=== PATIENT | female | born 1965 | race Caucasian/White ===

== ENCOUNTER 2021-05-25 20:03 | Outpatient (REF) | payer MEDICAID, SELFPAY ==
[2021-05-25 20:23] LABS: Abs Immature Grans 0.05 10^3/uL (0.0-0.06); Absolute Basophil Count 0.09 10^3/uL (0.0-0.2); Absolute Eosinophil Count 0.08 10^3/uL (0.0-0.7); Absolute Lymphocyte Count 4.88 10^3/uL (1.2-3.4); Absolute Monocyte Count 0.85 10^3/uL (0.1-0.8); Absolute Neutrophil Count 4.99 10^3/uL (1.2-6.7); Basophils % 0.8; Eosinophils % 0.7; HCT 44.2 % (36.0-46.0); HGB 14.6 g/dL (11.2-15.7); Immature Grans % 0.5; Lymphocytes % 44.6; MCH 30.7 pg (27.0-33.0); MCV 92.9 fL (80-95); MPV 8.3 fL (8.0-11.0); Monocytes % 7.8; Neutrophils % 45.6; Nucleated RBC 0 %; Platelet Count 332 10^3/uL (130-400); RBC 4.76 10^6/uL (3.93-5.22); RDW 15.5 % (11.7-14.6); RDW-SD 53.1 fL; WBC 10.94 10^3/uL (4.4-10.8)
[2021-05-25 20:58] LABS: ALT 78 U/L (14-59); AST 59 U/L (15-37); Albumin 3.6 g/dL (3.4-5.0); Alkaline Phosphatase 181 U/L (46-116); Anion Gap 15.9 mmol/L (3-11); BUN 4 mg/dL (7-18); Bilirubin, Total 0.3 mg/dL (0.2-1.0); CO2 21.1 mmol/L (21.0-32.0); CREATININE 0.5 mg/dL (0.55-1.02); Calcium 8.6 mg/dL (8.5-10.1); Chloride 102 mmol/L (98-107); Glucose 84 mg/dL (74-106); NT-proBNP 37 pg/mL (<300); Potassium 4.2 mmol/L (3.5-5.1); Sodium 139 mmol/L (136-145); TSH (W/Ref FT4) 1.21 uIU/mL (0.36-3.74); Total Protein 7.1 g/dL (6.4-8.2)
[2021-05-28 09:55] LABS: HBs Antibody, Quant <3.1 mIU/mL (See Note); Hepatitis B Surface Ab Negative (See Note)
[2021-05-28 10:09] LABS: Hepatitis B Surface Ag Negative (Negative)
[2021-05-28 10:50] LABS: Hepatitis C Ab w Rflx HCV PCR Negative (Negative)
== END 2021-05-25 20:04 | disposition home or self-care (01) ==
LOC: NCHCN 20:03
PROVIDERS: PCP Registered Nurse; Visit Provider Internal Medicine
DX: C34.90 Malignant neoplasm of unspecified part of unspecified bronchus or lung (principal); R60.9 Edema, unspecified; R73.9 Hyperglycemia, unspecified
CPT/HCPCS: 80053; 86706; 86803; 87340; 83880; 84443; 85025

== ENCOUNTER 2021-12-20 17:46 | Outpatient (REF) | payer MEDICAID, SELFPAY ==
[2021-12-20 14:29] LABS: HCT 42.8 % (36.0-46.0); HGB 13.8 g/dL (11.2-15.7); MCHC 32.2 % (32.0-36.0); MCV 83.8 fL (80-95); MPV 9.7 fL (8.0-11.0); Platelet Count 373 10^3/uL (130-400); RBC 5.11 10^6/uL (3.93-5.22); RDW 14.5 % (11.7-14.6); RDW-SD 44.1 fL; WBC 8.72 10^3/uL (4.4-10.8)
[2021-12-20 14:49] LABS: ALT 30 U/L (14-59); AST 15 U/L (15-37); Albumin 3.8 g/dL (3.4-5.0); Alkaline Phosphatase 100 U/L (46-116); Anion Gap 11.4 mmol/L (3-11); BUN 16 mg/dL (7-18); Bilirubin, Total 0.4 mg/dL (0.2-1.0); CO2 25.6 mmol/L (21.0-32.0); CREATININE 0.6 mg/dL (0.55-1.02); Calcium 9.6 mg/dL (8.5-10.1); Chloride 104 mmol/L (98-107); Glucose 92 mg/dL (74-106); Potassium 3.9 mmol/L (3.5-5.1); Sodium 141 mmol/L (136-145); Total Protein 7.5 g/dL (6.4-8.2)
--- OUTSIDE RECORDS SUMMARY | 2021-12-20 17:48 | XMS_ITS | CCD ---
:1965 Author Care Team Providers Name Role Phone Greyson CAMEJO Attending Physician Unavailable P. Registered Nurse Unavailable Vital Signs Vital Sign Value Unit Date/Time Recent/Initial? BP Systolic 130 mmHg 08/25/2021 17:14 Initial VS BP Diastolic 95 mmHg 08/25/2021 17:14 Initial VS Respiratory Rate 28 bpm 08/25/2021 17:14 Initial VS Heart Rate 147 bpm 08/25/2021 17:14 Initial VS O2 % BldC Oximetry 100 % 08/25/2021 17:14 Initi al VS Weight Measured 122.8 lbs 08/25/2021 18:03 Initial VS Body Temperature 37 degrees 08/25/2021 18:05 Initial VS BMI (Body Mass Index) 23.83 kg/m^2 08/25/2021 18:[address] Recent VS Weight Measured 122 lbs 08/25/2021 18:48 Most Rec ent VS Height 60 in 08/25/2021 18:48 Most Recent VS BSA (Body Surface 1.53 m^2 08/25/2021 18:48 Most R ecent VS Area) BP Systolic 126 mmHg 08/25/2021 20:15 Most Recent VS BP Diastolic 85 mmHg 08/25/2021 20:15 Most Recent VS Respiratory Rate 26 bpm 08/25/2021 20:15 Most Re cent VS Heart Rate 144 bpm 08/25/2021 20:15 Most Recent VS O2 % BldC Oximetry 96 % 08/25/2021 20:15 Most Recent VS Allergies Allergy Code Allergy Type Reaction Status PCN (penicillin) 0 Drug allergy Active SULFA (sulfonamide) 0 Drug allergy Active Procedures Unknown or Not Available. History of Immunizations Unknown or Not Available. Problems Problem Code Start Date Resolved Date Status Wernicke's 72665511 Active encephalopathy Malnutrition 4306492 Active Sick-euthyroid syndrome 974188367 Acti ve Difficulty with life 438067803 Active management GERD 183127942 Active History of alcohol abuse 867471459 10/05/2021 Res olved Alcohol 796190656 10/05/2021 Resolved withdrawal-induced seizure PUD 89851029 10/05/2021 Resolved Elevated liver enzymes 748224824 10/05/2021 Resol dionte level Vulvar lesion 362756940 10/05/2021 Resolved Results ACETAMINOPHEN* - Collect Date/Time: 03/2021 17:20 Test Name Code Test Result Test Units Test Ref Range ACETAMINOPHEN 3298-7 <2.0 ug/mL L=10.0 H=2 0.0 ALCOHOL (ETHANOL)* - Collect Date/Time: 08/25/2021 17:20 Test Name Code Test Result Test Units Test Ref Range ALCOHOL (ETHANOL) 97061-6 <3 mg/dL AMMONIA - Collect Date/Time: 08/25/2021 17:20 Test Name Code Test Result Test Units Test Ref Range AMMONIA 90459-3 61 umol/L L=19 H=54 COMPREHENSIVE METABOLIC PANEL (CMP) - Co llect Date/Time: 08/25/2021 17:20 Test Name Code Test Result Test Units Test Ref Range GLUCOSE 2345-7 102 mg/dL L=70 H=11 6 BUN 3094-0 52 mg/dL L=6 H=25 CREATININE 2160-0 1.66 mg/dL L=0.51 H=0.95 SODIUM SERUM 2951-2 162 mmol/L L=136 H=14 5 POTASSIUM SERUM 2823-3 3.6 mmol/L L=3.4 H =5.2 CHLORIDE SERUM 2075-0 118 mmol/L L=96 H= 110 CARBON DIOXIDE (CO2) 2028-9 18 mmol/L L=22 H=34 ANION GAP 95670-2 25.6 mmol/L CALCIUM SERUM 69175-4 9.1 mg/dL L=8.2 H=10.2 BILIRUBIN TOTAL 1975-2 6.0 mg/dL L=0.0 H =1.3 ALK. PHOS. 6768-6 330 U/L L=46 H=11 6 SGOT (AST) 1920-8 972 U/L L=15 H=37 SGPT (ALT) 1742-6 794 U/L L=12 H=78 TOTAL PROTEIN 2885-2 6.6 gm/dL L=6.0 H=8 .0 ALBUMIN 1751-7 2.7 gm/dL L=3.4 H=5. 0 AGE 56 years eGFR (non-Afr.Amer.) 26800-0 32 mL/min eGFR (Afr-[place]izen [place]) 35918-9 39 mL/min CPK SERUM TOTAL* - Collect Date/Time: 17:20 Test Name Code Test Result Test Units Test Ref Range CPK 2157-6 80 U/L L=0 H=15 0 Specimen seq. ADM. N/A LACTIC ACID - Collect Date/Time: 021 17:20 Test Name Code Test Result Test Units Test Ref Range LACTIC ACID 93483-2 10.2 mmol/L L=0.7 H=2. 1 LIPASE* - Collect Date/Time: 08/25/2021 17:20 Test Name Code Test Result Test Units Test Ref Range LIPASE 197 U/L L=73 H=39 3 MAGNESIUM SERUM* - Collect Date/Time: 17:20 Test Name Code Test Result Test Units Test Ref Range MAGNESIUM 78973-3 2.6 mg/dL L=1.8 H=2. 4 SALICYLATE SERUM* - Collect Date/Time: 1 10/25/2020 17:20 Test Name Code Test Result Test Units Test Ref Range SALICYLATE 4024-6 <2.8 mg/dL L=15.0 H=30 .0 TROPONIN-I ADM.* - Collect Date/Time: 17:20 Test Name Code Test Result Test Units Test Ref Range TROPONIN-I 02318-4 0.118 ng/mL L=0.000 H=0. 060 TSH THYROID STIMULATING HORMONE* - Colle ct Date/Time: 08/25/2021 17:20 Test Name Code Test Result Test Units Test Ref Range TSH 3014-8 11.264 uIU/mL L=0.360 H=3. 740 CBC W/ DIFFERENTIAL* - Collect Date/Time : 08/25/2021 17:20 Test Name Code Test Result Test Units Test Ref Range WBC 6690-2 11.67 th/cmm L=5.00 H=10.00 NEUT % 62.9 % L=40.0 H=80.0 LYMPH % 27.2 % L=10.0 H=50.0 MONO % 22798-2 7.6 % L=2.0 H=12.0 EOS % 0.1 % L=0.0 H=8. 0 BASO % 0.7 % L=0.0 H=3. 0 IG % 2514-8 1.5 % L=0.0 H=1. 1 NRBC % 43070-3 2.0 % L=0.0 H=0. 0 NEUT abs count 751-8 7.4 th/cmm L=1.6 H= 8.4 LYMPH abs count 731-0 3.2 th/cmm L=1.5 H =4.0 MONO abs count 742-7 0.9 th/cmm L=0.2 H= 1.0 EOS abs count 711-2 0.0 th/cmm L=0.0 H=0 .5 BASO abs count 704-7 0.1 th/cmm L=0.0 H= 0.2 IG abs count 27349-5 0.2 th/cmm L=0.0 H=0. 1 NRBC abs count 11217-5 0.2 mil/cmm L=0.0 H= 0.0 RBC 789-8 4.47 mil/cmm L=3.90 H=5.40 HEMOGLOBIN 718-7 14.1 gm/dL L=12.0 H=16.0 HEMATOCRIT 4544-3 45 % L=37 H=47 MCV 787-2 100 fL L=82 H=92 MCH 785-6 31.5 pg L=27.0 H=31.0 MCHC 786-4 31.5 % L=32.0 H=36.0 RDW-SD 788-0 69.0 fL L=39.0 H=49.0 PLATELET COUNT 777-3 269 th/cmm L=150 H= 450 Anisocytosis 2+ N/A Microcytes 1+ N/A Macrocytes 1+ N/A Target cells 1+ N/A Spherocytes 1+ N/A PTT PARTIAL THROMBOPLASTIN TIME* - Colle ct Date/Time: 08/25/2021 17:20 Test Name Code Test Result Test Units Test Ref Range PTT 88332-7 21 seconds L=24 H=32 SARKIS COVID GENEXPERT* - Collect Date/T kory: 08/25/2021 17:20 Test Name Code Test Result Test Units Test Ref Range COVID 09435-6 NEGATIVE N/A Normal: Negativ e Tier- SYMPTOMS N/A CULT URINE CULTURE* - Collect Date/Time: 08/25/2021 18:01 Test Name Code Test Result Test Units Test Ref Range COLLECTION MODE: SANCHEZ N/A DRUG SCN 13 PANEL (MEDTOX)* - Collect Da te/Time: 08/25/2021 18:07 Test Name Code Test Result Test Units Test Ref Range CANNABINOIDS 46904-2 NEGATIVE N/A Cutoff = 50 ng/mL PHENCYCLIDINE 13470-1 NEGATIVE N/A Cutoff = 25 ng/mL COCAINE 62771-3 NEGATIVE N/A Cutoff = 150 ng/mL METHAMPHETAMINES 63215-3 NEGATIVE N/A Cutoff = 50 0 ng/mL OPIATES 29345-9 NEGATIVE N/A Cutoff = 100 ng/mL AMPHETAMINES 28384-0 NEGATIVE N/A Cutoff = 500 ng/mL BENZODIAZEPINES 94697-0 NEGATIVE N/A Cutoff = 150 ng/mL TRICYCLIC ANTIDEP 3533-7 NEGATIVE N/A Cutoff = 3 00 ng/mL METHADONE 17612-4 NEGATIVE N/A Cutoff = 200 ng/mL BARBITURATES 94254-4 NEGATIVE N/A Cutoff = 200 ng/mL OXYCODONE 67280-6 NEGATIVE N/A Cutoff = 100 ng/mL PROPOXYPHENE 72010-2 NEGATIVE N/A Cutoff = 300 ng/mL BUPRENORPHINE 3414-0 NEGATIVE N/A Cutoff = 10 mg/mL URINALYSIS WITH REFLEX CULT IF POSITIVE* - Collect Date/Time: 08/25/2021 18:01 Test Name Code Test Result Test Units Test Ref Range COLLECTION MODE: SANCHEZ N/A Color 5778-6 JONAH N/A yellow Appearance 5767-9 HAZY N/A clear Glucose urine 41807-9 DNR N/A negative mg/ dl Bilirubin 5770-3 DNR N/A negative Ketones 2514-8 DNR N/A negative mg/d l Spec gravity 5811-5 DNR N/A 1.003 - 1.030 pH urine 2756-5 DNR N/A 5.0 - 7.0 Protein 98754-2 DNR N/A negative mg/d l Urobilinogen 44048-6 DNR N/A <or= 1 EU/d l Nitrite. 5802-4 DNR N/A negative Blood 5794-3 DNR N/A negative Leukocytes. DNR N/A negative MICROSCOPIC INDICATED N/A WBCs. 31470-4 >100 N/A 0-5 / hpf RBCs 06916-1 0-5 N/A 0-5 / hpf Epith cells 09785-2 0-5 N/A 0-5 / hpf Cell types transition N/A Crystals none N/A none Bacteria large N/A none Mucus 8247-9 present N/A none Casts 31084-3 none N/A none /lp f TYPE AND SCREEN* - Collect Date/Time: 17:20 Test Name Code Test Result Test Units Test Ref Range Blood Group 883-9 O N/A Rh (D) 61476-6 POSITIVE N/A Antibody Screen 1005-8 NEGATIVE N/A Active Medications Medications Administered During Visit Medication Dose Units Frequency Route Date/Time of Last Dose SODIUM CHLORIDE 100 ML X1 1 18:51 0.9% 1000ML CefTRIAXone IVPB: 1 GM X1 021 18:53 1GM/50ML SODIUM CHLORIDE 250 ML X1 1 19:18 0.45% 1000ML FOLIC/MVI/THIAMINE 250 ML X1 2020 20:25 /NS 1MG/10ML/500MG/L Encounters Encounter Diagnosis Diagnosis Code Start Date Hyperosmolality and or hypernatremia 504142435 03/2021 Social History Smoking Status Code Start Date End Date Current every day smoker 037987981 Patient Decision Aids Unknown or Not Available. Discharge Instructions You were admitted to [facility] on 08/25/2021 16:54 with a principal diagnosis of Hyperosmolality and hyperna tremia You had the following tests done: DRUG SCN 13 PANEL (MEDTOX)* CULT URINE CULTURE* URINALYSI S WITH REFLEX CULT IF POSITIVE* ACETAMINOPHEN* ALCOHOL (ETHANOL )* AMMONIA CBC W/ DIFFERENTIAL* COMPREHENSIVE MET ABOLIC PANEL (CMP) [facility]* CPK SERUM TOTAL* LACTIC ACID LIPASE* MAGNESIUM SERUM* PTT PARTIAL TH ROMBOPLASTIN TIME* SALICYLATE SERUM* TROPONIN-I ADM.* TSH T HYROID STIMULATING HORMONE* TYPE AND SCREEN* You were discharged from [facility] on 08/25/2021 20:57 Should you have any questions prior to d ischarge, please contact a member of your healthcare team. If you have left the ho spital and have any questions, please contact your primary care physician. Chief Complaint and Reason For Visit Chief Complaint Date of Onset UNRESPONSIVE Function Status Unknown or Not Available. Plan of Care Unknown or Not Available. Referral/Transition of Care Unknown or Not Available.
--- OUTSIDE RECORDS SUMMARY | 2021-12-20 17:48 | XMS_ITS | CCD ---
:1965 Author Care Team Providers Name Role Phone Cheng MONCADA Attending Physician Unavailable Vital Signs Unknown or Not Available. Allergies Allergy Code Allergy Type Reaction Status PCN (penicillin) 0 Drug allergy Active SULFA (sulfonamide) 0 Drug allergy Active Procedures Unknown or Not Available. History of Immunizations Unknown or Not Available. Problems Problem Code Start Date Resolved Date Status Wernicke's 69812185 Active encephalopathy Malnutrition 0118576 Active Sick-euthyroid syndrome 900955589 Acti ve Difficulty with life 682728674 Active management GERD 462729744 Active History of alcohol abuse 418267087 10/05/2021 Res olved Alcohol 409490003 10/05/2021 Resolved withdrawal-induced seizure PUD 88596258 10/05/2021 Resolved Elevated liver enzymes 257363811 10/05/2021 Resol dionte level Vulvar lesion 333573707 10/05/2021 Resolved Results Unknown or Not Available. Active Medications Medication Code Dose Units Frequency Route Modification Start Date/Time Multivitamin 74347141364 1 EACH DAILY ORAL 022 Oral Tablet 09:44 Prescription Detail TAKE 1 EACH ORAL DAILY Pantoprazole 538667 40 MG DAILY ORAL 12/06/2021 Sodium 40 MG Oral 09:43 Tablet, Delayed Release Prescription Detail TAKE 40 MG ORAL DAILY Thiamine HCl 000660 100 MILLIGRAMS DAILY ORAL 12/06/19 22 100MG Oral 09:41 Tablet Prescription Detail TAKE 100 MILLIGRAMS ORAL ROMI LY Folic Acid 112978 1 MILLIGRAMS DAILY ORAL 12/06/2021 1MG Oral 09:40 Tablet Prescription Detail TAKE 1 MILLIGRAMS ORAL DAILY Medications Administered During Visit Unknown or Not Available. Encounters Unknown or Not Available. Social History Smoking Status Code Start Date End Date Current every day smoker 157562284 Patient Decision Aids Unknown or Not Available. Discharge Instructions You were admitted to [facility] on 10/05/2021 16:[address] [facility] on 10/05/2021 16:44 Should you have any questions prior to d ischarge, please contact a member of your healthcare team. If you have left the ho spital and have any questions, please contact your primary care physician. Chief Complaint and Reason For Visit Chief Complaint Date of Onset ALTERED MENTAL STATUS Function Status Unknown or Not Available. Plan of Care Unknown or Not Available. Referral/Transition of Care Unknown or Not Available.
--- OUTSIDE RECORDS SUMMARY | 2021-12-20 17:48 | XMS_ITS | CCD ---
[...] Code Start Date Resolved Date Status Wernicke's 49288772 Active encephalopathy Malnutrition 8544258 Active Sick-euthyroid syndrome 863884225 Acti ve Difficulty with life 760056246 Active management GERD 436022653 Active History of alcohol abuse 305662335 10/05/2021 Res olved Alcohol 800127801 10/05/2021 Resolved withdrawal-induced seizure PUD 58251738 10/05/2021 Resolved Elevated liver enzymes 245866690 10/05/2021 Resol dionte level Vulvar lesion 633154626 10/05/2021 Resolved Results Unknown or Not Available. Active Medications Medication Code Dose Units Frequency Route Modification Start Date/Time Multivitamin 87506358454 1 EACH DAILY ORAL 022 Oral Tablet 09:44 Prescription Detail TAKE 1 EACH ORAL DAILY Pantoprazole 175525 40 MG DAILY ORAL 12/06/2021 Sodium 40 MG Oral 09:43 Tablet, Delayed Release Prescription Detail TAKE 40 MG ORAL DAILY Thiamine HCl 232038 100 MILLIGRAMS DAILY ORAL 12/06/19 22 100MG Oral 09:41 Tablet Prescription Detail TAKE 100 MILLIGRAMS ORAL ROMI LY Folic Acid 705300 1 MILLIGRAMS DAILY ORAL 12/06/2021 1MG Oral 09:40 Tablet Prescription Detail TAKE 1 MILLIGRAMS ORAL DAILY Medications Administered During Visit Unknown or Not Available. Encounters Encounter Diagnosis Diagnosis Code Start Date Wernicke's encephalopathy E512 10/05/2021 Social History Smoking Status Code Start Date End Date Current every day smoker 686562512 Patient Decision Aids Unknown or Not Available. Discharge Instructions You were admitted to [facility] on 10/05/2021 06:01 with a principal diagnosis of Wernicke's encephalopathy You were discharged from [facility] on 12/06/2021 06:01 Should you have any questions prior to d ischarge, please contact a member of your healthcare team. If you have left the ho spital and have any questions, please contact your primary care physician. Chief Complaint and Reason For Visit Unknown or Not Available. Function Status Unknown or Not Available. Plan of Care Unknown or Not Available. Referral/Transition of Care Unknown or Not Available.
--- OUTSIDE RECORDS SUMMARY | 2021-12-20 17:48 | XMS_ITS | CCD ---
:1965 Author Care Team Providers Name Role Phone Cheng MONCADA Attending Physician Unavailable Vital Signs Vital Sign Value Unit Date/Time Recent/Initial? BP Systolic 126 mmHg 10/05/2021 20:25 Initial VS BP Diastolic 69 mmHg 10/05/2021 20:25 Initial VS Respiratory Rate 18 bpm 10/05/2021 20:25 Initial VS Heart Rate 101 bpm 10/05/2021 20:25 Initial VS O2 % BldC Oximetry 97 % 10/05/2021 20:25 Initi al VS Body Temperature 36.7 degrees 10/05/2021 20:25 Initial VS BMI (Body Mass 24.46 kg/m^2 10/06/2021 09:20 Initial V S Index) Weight Measured 129.43 lbs 10/06/2021 09:20 Initial VS Height 61 in 10/06/2021 09:20 Initial VS BSA (Body Surface 1.59 m^2 10/06/2021 09:20 Initia l VS Area) Weight Measured 127.3 lbs 12/06/2021 05:20 Most Rec ent VS BP Systolic 89 mmHg 12/06/2021 05:20 Most Recent VS BP Diastolic 73 mmHg 12/06/2021 05:20 Most Recent VS Respiratory Rate 16 bpm 12/06/2021 05:20 Most Re cent VS Heart Rate 98 bpm 12/06/2021 05:20 Most Recent VS O2 % BldC Oximetry 100 % 12/06/2021 05:20 Most Recent VS Body Temperature 36.7 degrees 12/06/2021 05:20 Most Re cent VS Allergies Allergy Code Allergy Type Reaction Status PCN (penicillin) 0 Drug allergy Active SULFA (sulfonamide) 0 Drug allergy Active Procedures Unknown or Not Available. History of Immunizations Unknown or Not Available. Problems Problem Code Start Date Resolved Date Status Wernicke's 61389580 Active encephalopathy Malnutrition 1966371 Active Sick-euthyroid syndrome 307276671 Acti ve Difficulty with life 292440913 Active management GERD 738151573 Active History of alcohol abuse 233111149 10/05/2021 Res olved Alcohol 005096338 10/05/2021 Resolved withdrawal-induced seizure PUD 82077923 10/05/2021 Resolved Elevated liver enzymes 319863873 10/05/2021 Resol dionte level Vulvar lesion 997508579 10/05/2021 Resolved Results AMMONIA - Collect Date/Time: 11/05/2021 15:09 Test Name Code Test Result Test Units Test Ref Range AMMONIA 67240-5 <10 umol/L L=19 H=54 AMMONIA - Collect Date/Time: 10/12/2021 06:20 Test Name Code Test Result Test Units Test Ref Range AMMONIA 39026-7 <10 umol/L L=19 H=54 BASIC METABOLIC PANEL (BMP) - Collect Da te/Time: 11/27/2021 06:40 Test Name Code Test Result Test Units Test Ref Range GLUCOSE 2345-7 115 mg/dL L=70 H=11 6 BUN 3094-0 13 mg/dL L=6 H=25 CREATININE 2160-0 0.65 mg/dL L=0.51 H=0.95 SODIUM SERUM 2951-2 139 mmol/L L=136 H=14 5 POTASSIUM SERUM 2823-3 4.1 mmol/L L=3.4 H =5.2 CHLORIDE SERUM 2075-0 105 mmol/L L=96 H= 110 CARBON DIOXIDE (CO2) 2028-9 28 mmol/L L=22 H=34 ANION GAP 07172-5 6.2 mmol/L CALCIUM SERUM 30511-4 9.0 mg/dL L=8.2 H=10.2 AGE 56 years eGFR (non-Afr.Amer.) 29978-9 94 mL/min eGFR (Afr-[place]) 28258-5 114 mL/min BASIC METABOLIC PANEL (BMP) - Collect Da te/Time: 11/05/2021 15:09 Test Name Code Test Result Test Units Test Ref Range GLUCOSE 2345-7 107 mg/dL L=70 H=11 6 BUN 3094-0 11 mg/dL L=6 H=25 CREATININE 2160-0 0.51 mg/dL L=0.51 H=0.95 SODIUM SERUM 2951-2 140 mmol/L L=136 H=14 5 POTASSIUM SERUM 2823-3 3.5 mmol/L L=3.4 H =5.2 CHLORIDE SERUM 2075-0 104 mmol/L L=96 H= 110 CARBON DIOXIDE (CO2) 2028-9 29 mmol/L L=22 H=34 ANION GAP 01722-4 7.3 mmol/L CALCIUM SERUM 56478-0 8.7 mg/dL L=8.2 H=10.2 AGE 56 years eGFR (non-Afr.Amer.) 50303-0 >120 mL/min eGFR (Afr-[place]) 67625-9 >120 mL/min COMPREHENSIVE METABOLIC PANEL (CMP) - Co llect Date/Time: 10/12/2021 06:20 Test Name Code Test Result Test Units Test Ref Range GLUCOSE 2345-7 100 mg/dL L=70 H=11 6 BUN 3094-0 13 mg/dL L=6 H=25 CREATININE 2160-0 0.61 mg/dL L=0.51 H=0.95 SODIUM SERUM 2951-2 139 mmol/L L=136 H=14 5 POTASSIUM SERUM 2823-3 4.0 mmol/L L=3.4 H =5.2 CHLORIDE SERUM 2075-0 105 mmol/L L=96 H= 110 CARBON DIOXIDE (CO2) 2028-9 28 mmol/L L=22 H=34 ANION GAP 63229-5 5.6 mmol/L CALCIUM SERUM 80994-2 9.0 mg/dL L=8.2 H=10.2 BILIRUBIN TOTAL 1975-2 0.2 mg/dL L=0.0 H =1.3 ALK. PHOS. 6768-6 89 U/L L=46 H=11 6 SGOT (AST) 1920-8 31 U/L L=15 H=37 SGPT (ALT) 1742-6 67 U/L L=12 H=78 TOTAL PROTEIN 2885-2 6.5 gm/dL L=6.0 H=8 .0 ALBUMIN 1751-7 2.9 gm/dL L=3.4 H=5. 0 AGE 56 years eGFR (non-Afr.Amer.) 27060-2 101 mL/min eGFR (Afr-[place]) 54821-4 >120 mL/min CBC W/ DIFFERENTIAL* - Collect Date/Time : 11/27/2021 06:40 Test Name Code Test Result Test Units Test Ref Range WBC 6690-2 7.04 th/cmm L=5.00 H=10.00 NEUT % 45.5 % L=40.0 H=80.0 LYMPH % 44.0 % L=10.0 H=50.0 MONO % 38073-3 8.4 % L=2.0 H=12.0 EOS % 1.7 % L=0.0 H=8. 0 BASO % 0.3 % L=0.0 H=3. 0 IG % 2514-8 0.1 % L=0.0 H=1. 1 NRBC % 06816-2 0.0 % L=0.0 H=0. 0 NEUT abs count 751-8 3.2 th/cmm L=1.6 H= 8.4 LYMPH abs count 731-0 3.1 th/cmm L=1.5 H =4.0 MONO abs count 742-7 0.6 th/cmm L=0.2 H= 1.0 EOS abs count 711-2 0.1 th/cmm L=0.0 H=0 .5 BASO abs count 704-7 0.0 th/cmm L=0.0 H= 0.2 IG abs count 68549-4 0.0 th/cmm L=0.0 H=0. 1 NRBC abs count 78671-4 0.0 mil/cmm L=0.0 H= 0.0 RBC 789-8 4.70 mil/cmm L=3.90 H=5.40 HEMOGLOBIN 718-7 13.2 gm/dL L=12.0 H=16.0 HEMATOCRIT 4544-3 41 % L=37 H=47 MCV 787-2 87 fL L=82 H=92 MCH 785-6 28.1 pg L=27.0 H=31.0 MCHC 786-4 32.4 % L=32.0 H=36.0 RDW-SD 788-0 45.1 fL L=39.0 H=49.0 PLATELET COUNT 777-3 336 th/cmm L=150 H= 450 CBC W/ DIFFERENTIAL* - Collect Date/Time : 11/05/2021 15:09 Test Name Code Test Result Test Units Test Ref Range WBC 6690-2 5.34 th/cmm L=5.00 H=10.00 NEUT % 44.9 % L=40.0 H=80.0 LYMPH % 47.6 % L=10.0 H=50.0 MONO % 00058-9 6.0 % L=2.0 H=12.0 EOS % 0.9 % L=0.0 H=8. 0 BASO % 0.2 % L=0.0 H=3. 0 IG % 2514-8 0.4 % L=0.0 H=1. 1 NRBC % 06898-6 0.0 % L=0.0 H=0. 0 NEUT abs count 751-8 2.4 th/cmm L=1.6 H= 8.4 LYMPH abs count 731-0 2.5 th/cmm L=1.5 H =4.0 MONO abs count 742-7 0.3 th/cmm L=0.2 H= 1.0 EOS abs count 711-2 0.1 th/cmm L=0.0 H=0 .5 BASO abs count 704-7 0.0 th/cmm L=0.0 H= 0.2 IG abs count 78153-5 0.0 th/cmm L=0.0 H=0. 1 NRBC abs count 54481-8 0.0 mil/cmm L=0.0 H= 0.0 RBC 789-8 4.36 mil/cmm L=3.90 H=5.40 HEMOGLOBIN 718-7 12.9 gm/dL L=12.0 H=16.0 HEMATOCRIT 4544-3 39 % L=37 H=47 MCV 787-2 90 fL L=82 H=92 MCH 785-6 29.6 pg L=27.0 H=31.0 MCHC 786-4 32.9 % L=32.0 H=36.0 RDW-SD 788-0 43.5 fL L=39.0 H=49.0 PLATELET COUNT 777-3 316 th/cmm L=150 H= 450 Atyp lymphs 1+ N/A Vaccuol neutr 1+ N/A CBC W/ DIFFERENTIAL* - Collect Date/Time : 10/12/2021 06:20 Test Name Code Test Result Test Units Test Ref Range WBC 6690-2 6.73 th/cmm L=5.00 H=10.00 NEUT % 40.5 % L=40.0 H=80.0 LYMPH % 48.4 % L=10.0 H=50.0 MONO % 51327-5 9.1 % L=2.0 H=12.0 EOS % 1.3 % L=0.0 H=8. 0 BASO % 0.4 % L=0.0 H=3. 0 IG % 2514-8 0.3 % L=0.0 H=1. 1 NRBC % 20005-6 0.0 % L=0.0 H=0. 0 NEUT abs count 751-8 2.7 th/cmm L=1.6 H= 8.4 LYMPH abs count 731-0 3.3 th/cmm L=1.5 H =4.0 MONO abs count 742-7 0.6 th/cmm L=0.2 H= 1.0 EOS abs count 711-2 0.1 th/cmm L=0.0 H=0 .5 BASO abs count 704-7 0.0 th/cmm L=0.0 H= 0.2 IG abs count 45293-3 0.0 th/cmm L=0.0 H=0. 1 NRBC abs count 54743-7 0.0 mil/cmm L=0.0 H= 0.0 RBC 789-8 3.80 mil/cmm L=3.90 H=5.40 HEMOGLOBIN 718-7 12.0 gm/dL L=12.0 H=16.0 HEMATOCRIT 4544-3 37 % L=37 H=47 MCV 787-2 97 fL L=82 H=92 MCH 785-6 31.6 pg L=27.0 H=31.0 MCHC 786-4 32.6 % L=32.0 H=36.0 RDW-SD 788-0 47.8 fL L=39.0 H=49.0 PLATELET COUNT 777-3 352 th/cmm L=150 H= 450 Active Medications Medication Code Dose Units Frequency Route Modification Start Date/Time Multivitamin 90226823747 1 EACH DAILY ORAL 022 Oral Tablet 09:44 Prescription Detail TAKE 1 EACH ORAL DAILY Pantoprazole 950173 40 MG DAILY ORAL 12/06/2021 Sodium 40 MG Oral 09:43 Tablet, Delayed Release Prescription Detail TAKE 40 MG ORAL DAILY Thiamine HCl 728157 100 MILLIGRAMS DAILY ORAL 12/06/19 22 100MG Oral 09:41 Tablet Prescription Detail TAKE 100 MILLIGRAMS ORAL ROMI LY Folic Acid 881273 1 MILLIGRAMS DAILY ORAL 12/06/2021 1MG Oral 09:40 Tablet Prescription Detail TAKE 1 MILLIGRAMS ORAL DAILY Medications Administered During Visit Medication Dose Units Frequency Route Date/Time of Last Dose ENOXAPARIN INJ 40 MG Q24H SUBQ 10/15/2021 SYRINGE: 40MG/0.4ML 20:18 FOLIC ACID TABLET: 1 MG DAILY PO 2021 1MG 07:38 MULTIVITAMIN 1 TAB DAILY WITH FOOD PO 022 W/MINERALS TABLET 07:38 PANTOPRAZOLE TABLET: 40 MG Q7AM PO 11/20 40MG 06:31 THIAMINE TABLET: 100 MG DAILY PO 12/06/19 22 100MG 07:38 ACETAMINOPHEN 650 MG PRN Q6H PO 12/04/2021 TABLET: 325MG 08:26 NF-Xifaxan Oral 550 MG BID PO Tablet 550MG 20:25 IBUPROFEN TABLET: 600 MG X1 PO 022 600MG 08:29 IBUPROFEN TABLET: 600 MG TID PO 022 600MG 07:38 Encounters Encounter Diagnosis Diagnosis Code Start Date Wernicke's encephalopathy E512 10/05/2021 Social History Smoking Status Code Start Date End Date Current every day smoker [id number] Patient Decision Aids Unknown or Not Available. Discharge Instructions You were admitted to [facility] on 10/05/2021 16:44 with a principal diagnosis of Wernicke's encephalopathy You had the following tests done: BASIC METABOLIC PANEL (BMP) CBC W/ DIFFERENTIAL* AMMONIA BASIC METABOLIC PANEL (BMP) CBC W/ DIFFERENTIAL* AMMONIA CBC W/ DIFFERENTIAL* COMPREHENSIVE METABOLIC PANEL (CMP) You were discharged from [facility] on 12/06/2021 10:25 Should you have any questions prior to d ischarge, please contact a member of your healthcare team. If you have left the ho spital and have any questions, please contact your primary care physician. Chief Complaint and Reason For Visit Chief Complaint Date of Onset DECONDITIONING WERNICKES ENCEPHALOPATHY 10/06/2021 Function Status Unknown or Not Available. Plan of Care Unknown or Not Available. Referral/Transition of Care Unknown or Not Available.
[2021-12-21 08:26] LABS: TSH 1.93 uIU/mL (0.36-3.74)
== END 2021-12-20 17:47 | disposition home or self-care (01) ==
LOC: NCHCN 17:46
PROVIDERS: PCP Registered Nurse; Visit Provider Registered Nurse
DX: E51.2 Wernicke's encephalopathy (principal)
CPT/HCPCS: 80053; 85027; 84443

== ENCOUNTER 2021-12-21 11:28 | Outpatient (REF) | payer MEDICAID, SELFPAY | END 2021-12-21 11:29 | disposition home or self-care (01) | LOC: NCHCN 11:28 | PROVIDERS: PCP Registered Nurse; Visit Provider Registered Nurse ==

== ENCOUNTER 2022-10-03 11:57 | Outpatient (REF) | payer MEDICAID, SELFPAY ==
[2022-10-03 14:27] LABS: HCT 37.6 % (36.0-46.0); HGB 12.1 g/dL (11.2-15.7); MCH 27.9 pg (27.0-33.0); MCHC 32.2 % (32.0-36.0); MCV 87 fL (80-95); Platelet Count 367 10^3/uL (130-400); RBC 4.33 10^6/uL (3.93-5.22); RDW 13.2 % (11.7-14.6); RDW-SD 41.4 fL; WBC 10.83 10^3/uL (4.4-10.8)
[2022-10-03 14:42] LABS: INR 0.9 (0.9-1.1); Prothrombin Time 9.1 sec (9.3-11.0)
[2022-10-03 14:44] LABS: NT-proBNP 69 pg/mL (<300); TSH 3.46 uIU/mL (0.36-3.74)
[2022-10-03 22:10] LABS: COMMENT (LAB VIEW ONLY) 159.47 mg/dL; Microalb ug/mg Crea 4.5 ug/mg Cr
== END 2022-10-03 11:58 | disposition home or self-care (01) ==
LOC: NCHCN 11:57
PROVIDERS: PCP Registered Nurse; Visit Provider Registered Nurse
DX: E51.2 Wernicke's encephalopathy (principal); M62.3 Immobility syndrome (paraplegic); N17.9 Acute kidney failure, unspecified
CPT/HCPCS: 85027; 82043; 82570; 83880; 84443; 85610

== ENCOUNTER 2022-10-10 14:58 | Outpatient (REF) | payer MEDICAID, SELFPAY ==
[2022-10-10 16:10] LABS: Albumin 3.1 g/dL (3.4-5.0); Alkaline Phosphatase 130 U/L (46-116); BUN 18 mg/dL (7-18); Bilirubin, Total 0.4 mg/dL (0.2-1.0); CO2 29.7 mmol/L (21.0-32.0); CREATININE 0.7 mg/dL (0.55-1.02); Calcium 8.8 mg/dL (8.5-10.1); Chloride 106 mmol/L (98-107); Estimated GFR 100.81 (mL/min/1.73m2); Glucose 100 mg/dL (74-106); Potassium 3.5 mmol/L (3.5-5.1); Sodium 143 mmol/L (136-145); Total Protein 7.2 g/dL (6.4-8.2)
[2022-10-10 16:11] LABS: ALT 32 U/L (14-59); AST 26 U/L (15-37); Anion Gap 7.3 mmol/L (3-11)
== END 2022-10-10 14:59 | disposition home or self-care (01) ==
LOC: NCHCN 14:58
PROVIDERS: PCP Registered Nurse; Visit Provider Registered Nurse
DX: R60.0 Localized edema (principal); Z87.19 Personal history of other diseases of the digestive system
CPT/HCPCS: 80053

== ENCOUNTER 2022-11-07 15:30 | Outpatient (REF) | payer MEDICAID, SELFPAY ==
[2022-11-07 21:35] LABS: Anion Gap 8.6 mmol/L (3-11); BUN 18 mg/dL (7-18); CO2 27.4 mmol/L (21.0-32.0); CREATININE 0.8 mg/dL (0.55-1.02); Calcium 9.8 mg/dL (8.5-10.1); Chloride 103 mmol/L (98-107); Estimated GFR 85.89 (mL/min/1.73m2); Glucose 98 mg/dL (74-106); Potassium 3.9 mmol/L (3.5-5.1); Sodium 139 mmol/L (136-145)
== END 2022-11-07 15:31 | disposition home or self-care (01) ==
LOC: NCHCN 15:30
PROVIDERS: PCP Registered Nurse; Visit Provider Registered Nurse
DX: R73.09 Other abnormal glucose (principal)
CPT/HCPCS: 80048

== ENCOUNTER 2023-01-27 13:30 | Outpatient (REF) | payer MEDICAID, SELFPAY ==
[2023-01-27 14:48] LABS: Anion Gap 7.9 mmol/L (3-11); BUN 15 mg/dL (7-18); CO2 27.1 mmol/L (21.0-32.0); CREATININE 0.8 mg/dL (0.55-1.02); Calcium 8.8 mg/dL (8.5-10.1); Chloride 104 mmol/L (98-107); Estimated GFR 85.89 (mL/min/1.73m2); Glucose 124 mg/dL (74-106); NT-proBNP 30 pg/mL (<300); Potassium 3.8 mmol/L (3.5-5.1); Sodium 139 mmol/L (136-145)
== END 2023-01-27 13:31 | disposition home or self-care (01) ==
LOC: NCHCN 13:30
PROVIDERS: PCP Registered Nurse; Visit Provider Nurse Practitioner Family
DX: R60.0 Localized edema (principal)
CPT/HCPCS: 80048; 83880

== ENCOUNTER 2023-07-03 16:58 | Outpatient (REF) | payer MEDICAID, SELFPAY | END 2023-07-03 16:59 | disposition home or self-care (01) | LOC: NCHCN 16:58 | PROVIDERS: PCP Registered Nurse; Visit Provider Family Medicine | DX: N39.0 Urinary tract infection, site not specified (principal) | CPT/HCPCS: 87086 ==

== ENCOUNTER 2024-02-18 14:43 | Outpatient (REF) | payer MEDICAID, SELFPAY ==
[2024-02-18 22:16] LABS: Abs Immature Grans 0.04 10^3/uL (0.0-0.06); Absolute Basophil Count 0.04 10^3/uL (0.0-0.2); Absolute Eosinophil Count 0.12 10^3/uL (0.0-0.7); Basophils % 0.5 %; Eosinophils % 1.6 %; HCT 44.5 % (36.0-46.0); HGB 14.5 g/dL (11.2-15.7); Immature Grans % 0.5 %; Lymphocytes % 45.3 %; MCH 27.6 pg (27.0-33.0); MCHC 32.6 % (32.0-36.0); MCV 85 fL (80-95); MPV 9.1 fL (8.0-11.0); Neutrophils % 40.1 %; Platelet Count 333 10^3/uL (130-400); RBC 5.26 10^6/uL (3.93-5.22); RDW 13.2 % (11.7-14.6); RDW-SD 40.5 fL
[2024-02-18 22:44] LABS: Hemoglobin A1C 6.2 % (<5.7)
[2024-02-18 22:52] LABS: ALT 79 U/L (14-59); AST 34 U/L (15-37); Albumin 3.9 g/dL (3.4-5.0); Alkaline Phosphatase 124 U/L (46-116); Anion Gap 12.2 mmol/L (3-11); BUN 15 mg/dL (7-18); Bilirubin, Total 0.3 mg/dL (0.2-1.0); CO2 24.8 mmol/L (21.0-32.0); CREATININE 0.8 mg/dL (0.55-1.02); Calcium 9.2 mg/dL (8.5-10.1); Chloride 102 mmol/L (98-107); Estimated GFR 85.35 (mL/min/1.73m2); Glucose 86 mg/dL (74-106); Potassium 4.1 mmol/L (3.5-5.1); Sodium 139 mmol/L (136-145); TSH (W/Ref FT4) 2.99 uIU/mL (0.36-3.74); Total Protein 7.8 g/dL (6.4-8.2)
[2024-02-18 22:53] LABS: Folate > 20.0 ng/mL (8.6-20.0)
== END 2024-02-18 14:44 | disposition home or self-care (01) ==
LOC: NCHCN 14:43
PROVIDERS: PCP Registered Nurse; Visit Provider Family Medicine
DX: M62.3 Immobility syndrome (paraplegic) (principal); E04.1 Nontoxic single thyroid nodule; F10.11 Alcohol abuse, in remission; R73.03 Prediabetes
CPT/HCPCS: 80053; 82306; 87077; 82746; 83036; 84443; 85025; 87086; 87186

== ENCOUNTER 2024-04-08 16:03 | Outpatient (REF) | payer MEDICAID, SELFPAY ==
--- OUTSIDE RECORDS SUMMARY | 2024-04-08 16:07 | XMS_ITS ---
Author Name Unknown Address [address] [place] [address] [phone] Phone Organization Unknown Address [address] [place] [address] [phone] Phone Care Team Providers Care Violent Crimes Detective Name Role Phone CORAL Anand Attending Unavailable ANGELITO Anand Primary Unavailable Social History Type Status Start Date End Date Code Code Syst em Smoking History Current every day smoker [id number] SNOMED CT Smoking History Former smoker 7770797 SNOMED CT Sex Female Medications Medication Start Date End Date Route Frequency Dose Code Code System Medication Instructions Home Meds Folic Acid 1MG Oral Tablet 12/06/2021 12/06/2021 ORAL DAILY 1 MILLIGRAMS 698689 RxNorm T MARTINEZ 1 MILLIGRAMS ORAL DAILY Multivitamin Oral Tablet 12/06/2021 12/06/2021 ORAL DAILY 1 unit(s) RxNorm TAKE 1 EACH ORAL DAILY Pantoprazole Sodium 40 MG Oral Tablet, Delayed Release 12/06/2021 12/06/2021 ORAL DAILY 40 MG 830025 RxNorm TAKE 40 MG ORAL DAILY Thiamine HCl 100MG Oral Tablet 12/06/2021 12/06/2021 ORAL DAILY 100 MILLIGRAMS 901098 RxNorm TAKE 100 MILLIGRAMS ORAL DAILY Folic Acid 1MG Oral Tablet 12/06/2021 Unknown ORAL DAILY 1 MILLIGRAMS 629642 RxNorm TAKE 1 MILLIGRAMS ORAL DAILY Thiamine HCl 100MG Oral Tablet 12/06/2021 06/18/2023 ORAL DAILY 100 MILLIGRAMS 055205 RxNorm TAKE 100 MILLIGRAMS ORAL DAILY Pantoprazole Sodium 40 MG Oral Tablet, Delayed Release 12/06/2021 Unknown ORAL DAILY 40 MG 254598 RxNorm TAKE 40 MG ORAL DAILY Multivitamin Oral Tablet 12/06/2021 Unknown ORAL DAILY 1 unit(s) RxNorm TAKE 1 EACH ORAL DAILY Keflex 500MG Oral Capsule 06/18/2023 Unknown ORAL TWICE A DAY 1 CAPSULE 934416 RxNorm TAKE 1 CAPSULE ORAL TWICE A DAY Assessment You had the following problems:WERNICKE'S ENCEPHALOPATHYMALNUTRITIONSICK- EUTHYROID SYNDROMEDIFFICULTY WITH LIFE MANAGEMENTGERD Hospital Discharge Instructions Should you have any questions prior to discharge, please contact a member of your healthcare team. If you have left the hospital and have any questions, please contact your primary care physician. Reason For Referral No Data Found Problems Problem Start Date Resolved Date Status Code Code System WERNICKE'S ENCEPHALOPATHY active 2100 7002 SNOMED-CT MALNUTRITION active 8912460 SNOMED- CT SICK-EUTHYROID SYNDROME active 040591 005 SNOMED-CT DIFFICULTY WITH LIFE MANAGEMENT active 569445823 SNOMED-CT GERD active 727410546 SNOMED-CT HISTORY OF ALCOHOL ABUSE 10/05/2021 resolved 3714 23175 SNOMED-CT ALCOHOL WITHDRAWAL-INDUCED SEIZURE 10/05/2021 resolved 639996483 SNOMED-CT PUD 10/05/2021 resolved 14065613 SNOMED-CT ELEVATED LIVER ENZYMES LEVEL 10/05/2021 resolved 181093436 SNOMED-CT VULVAR LESION 10/05/2021 resolved 399180405 SNOME D-CT Allergies and Adverse Reactions Allergy Substance Reaction Severity Start Date Concern Status Co de Code System PCN (penicillin) Active 2709686 SNOMED- CT SULFA (sulfonamide) Active 68530523 SNO MED-CT Plan of Treatment CT CHEST W/O CONTRAST 09/18/2023 US ABDOMEN LIMITED 1 ORGAN 10/15/2022 CT CHEST W/O CONTRAST 08/26/2022 MM SCREEN BILAT 08/26/2022 CT CHEST W/O CONTRAST 04/29/2022 Encounters Encounter Diagnosis Start Date Code Code Sys tem Wernicke's encephalopathy 10/05/2021 SN OMED-CT Personal Care Team Section Performer Name Performer Role Active Date Inactive Da te
--- OUTSIDE RECORDS SUMMARY | 2024-04-08 16:07 | XMS_ITS ---
Author Name Unknown Address [address] [place] [address] [phone] Phone Organization Unknown Address [address] [place] [address] [phone] Phone Care Team Providers Care Finishing Range Operator Name Role Phone Unavailable Xwatchlist Unavailable CORAL Anand Attending Unavailable ANGELITO Anand Primary Unavailable Social History Type Status Start Date End Date Code Code Syst em Smoking History Current every day smoker 386357047 SNOMED CT Smoking History Former smoker 0296327 SNOMED CT Sex Female Medications Medication Start Date End Date Route Frequency Dose Code Code System Medication Instructions Home Meds Folic Acid 1MG Oral Tablet 12/06/2021 12/06/2021 ORAL DAILY 1 MILLIGRAMS 759996 RxNorm T MARTINEZ 1 MILLIGRAMS ORAL DAILY Multivitamin Oral Tablet 12/06/2021 12/06/2021 ORAL DAILY 1 unit(s) RxNorm TAKE 1 EACH ORAL DAILY Pantoprazole Sodium 40 MG Oral Tablet, Delayed Release 12/06/2021 12/06/2021 ORAL DAILY 40 MG 805324 RxNorm TAKE 40 MG ORAL DAILY Thiamine HCl 100MG Oral Tablet 12/06/2021 12/06/2021 ORAL DAILY 100 MILLIGRAMS 500509 RxNorm TAKE 100 MILLIGRAMS ORAL DAILY Folic Acid 1MG Oral Tablet 12/06/2021 Unknown ORAL DAILY 1 MILLIGRAMS 859588 RxNorm TAKE 1 MILLIGRAMS ORAL DAILY Thiamine HCl 100MG Oral Tablet 12/06/2021 06/18/2023 ORAL DAILY 100 MILLIGRAMS 145293 RxNorm TAKE 100 MILLIGRAMS ORAL DAILY Pantoprazole Sodium 40 MG Oral Tablet, Delayed Release 12/06/2021 Unknown ORAL DAILY 40 MG 980584 RxNorm TAKE 40 MG ORAL DAILY Multivitamin Oral Tablet 12/06/2021 Unknown ORAL DAILY 1 unit(s) RxNorm TAKE 1 EACH ORAL DAILY Keflex 500MG Oral Capsule 06/18/2023 Unknown ORAL TWICE A DAY 1 CAPSULE 276378 RxNorm TAKE 1 CAPSULE ORAL TWICE A [...] ENCEPHALOPATHY active 2100 7002 SNOMED-CT MALNUTRITION active 7574521 SNOMED- CT SICK-EUTHYROID SYNDROME active 141594 005 SNOMED-CT DIFFICULTY WITH LIFE MANAGEMENT active 337080195 SNOMED-CT GERD active 142075359 SNOMED-CT HISTORY OF ALCOHOL ABUSE 10/05/2021 resolved 3714 01174 SNOMED-CT ALCOHOL WITHDRAWAL-INDUCED SEIZURE 10/05/2021 resolved 941519928 SNOMED-CT PUD 10/05/2021 resolved 36920165 SNOMED-CT ELEVATED LIVER ENZYMES LEVEL 10/05/2021 resolved 064359415 SNOMED-CT VULVAR LESION 10/05/2021 resolved 373119668 SNOME D-CT Allergies and Adverse Reactions Allergy Substance Reaction Severity Start Date Concern Status Co de Code System PCN (penicillin) Active 6609853 SNOMED- CT SULFA (sulfonamide) Active 87338009 SNO MED-CT Plan of Treatment CT CHEST W/O CONTRAST 09/18/2023 US ABDOMEN LIMITED 1 ORGAN 10/15/2022 CT CHEST W/O CONTRAST 08/26/2022 MM SCREEN BILAT 08/26/2022 CT CHEST W/O CONTRAST 04/29/2022 Personal Care Team Section Performer Name Performer Role Active Date Inactive Da te
--- OUTSIDE RECORDS SUMMARY | 2024-04-08 16:08 | XMS_ITS ---
Author Name Unknown Address [address] [place] [address] [phone] Phone Organization Unknown Address [address] [place] [address] [phone] Phone Care Team Providers Care Pelletizer Operator Name Role Phone DARWIN Canchola Attending Unavailable ANGELITO Anand Primary Unavailable Results CT LDCT FOR LUNG CA SCREEN - Completed: 08/26/2022 14:50 LOINC: [No content] MM SCREENING BILAT MAMMO W T RAMEZ W CAD - Completed: 08/26/2022 14:44 LOINC: [place], [place] [address] PACS EXTRACTION MACHINE OPERATOR REPORT Patient Name: TEREZA ALEJO MRN: Sex: : Age: [id number] F 1965 57 Account: Accession: Admit: StayType: [id number] 08/26/2022 O/P Ordered: Order ID: Submitted: Ordering Provider: 08/26/2022 14:19 [id number] [facility] GRNAADOS Completed: Technologist: Resulted: 08/26/2022 14:44 SLG 08/26/2022 14:50 Study Description: MM SCREENING BILAT MAMMO W CARISSA W CAD Study Reason: SCREENING Comparisons: This is a baseline examination. FINDINGS: There is motion on the left MLO view. This should be repeated. Mammography/Tomosynthesis: Masses/Architectural Distortion: None seen. Microcalcifictions: No suspicious pleomorphic-type are seen. Skin Thickening/Nipple Retraction: None. IMPRESSION: 1. There is motion on the left MLO view. This view should be repeated 2. No masses or areas of architectural distortion are seen. No suspicious microcalcifications are present. BI-RADS Category 0: Needs additional imaging evaluation(Additional mammographic views or ultrasound) BI_RADS Density Category B: Scattered areas of fibroglandular density Breast density Category C or D implies that the patient has dense breast tissue. Dense breast tissue can make it harder to find cancer on a mammogram. Dense breast tissue is also associated with an increased risk of breast cancer. This information about the result of the mammogram report was provided to the patient to raise their awareness. Use this report when you speak with the patient about their risks for breast cancer, which includes their family history. At that time, you may recommend additional screening tests (Ultrasound or MRI) as these tests may add significant information. A negative radiographic report should not delay biopsy if a dominant or clinically suspicious mass is present. Up to ten percent of cancers are not identified on mammography. A negative report may reinforce clinical impression. Adenosis and dense breasts may obscure an underlying neoplasm. False positive reports average 6 to 10%. Patient will receive a letter notifying them of these results. Report Digitally Signed by Broderick Zapata on 08/26/2022 02:50 PM EST Social History Type Status Start Date End Date Code Code Syst em Smoking History Current every day smoker 301083813 SNOMED CT Smoking History Former smoker 3132028 SNOMED CT Sex Female Medications Medication Start Date End Date Route Frequency Dose Code Code System Medication Instructions Home Meds Folic Acid 1MG Oral Tablet 12/06/2021 Unknown ORAL DAILY 1 MILLIGRAMS 773813 RxNorm TAKE 1 MILLIGRAMS ORAL DAILY Thiamine HCl 100MG Oral Tablet 12/06/2021 3 ORAL DAILY 100 MILLIGRAMS 522898 RxNorm TAKE 100 MILLIGRAMS ORAL DAILY Pantoprazole Sodium 40 MG Oral Tablet, Delayed Release 12/06/2021 Unknown ORAL DAILY 40 MG 173094 RxNorm TAKE 40 MG ORAL DAILY Multivitamin Oral Tablet 12/06/2021 Unknown ORAL DAILY 1 unit(s) RxNorm TAKE 1 EACH ORAL DAILY Keflex 500MG Oral Capsule 06/18/2023 Unknown ORAL TWICE A DAY 1 CAPSULE 354544 RxNorm TAKE 1 CAPSULE ORAL TWICE A [...] ENCEPHALOPATHY active 2100 7002 SNOMED-CT MALNUTRITION active 1434992 SNOMED- CT SICK-EUTHYROID SYNDROME active 618348 005 SNOMED-CT DIFFICULTY WITH LIFE MANAGEMENT active 823041560 SNOMED-CT GERD active 441796168 SNOMED-CT HISTORY OF ALCOHOL ABUSE 10/05/2021 resolved 3714 81983 SNOMED-CT ALCOHOL WITHDRAWAL-INDUCED SEIZURE 10/05/2021 resolved 359130221 SNOMED-CT PUD 10/05/2021 resolved 25821687 SNOMED-CT ELEVATED LIVER ENZYMES LEVEL 10/05/2021 resolved 602588963 SNOMED-CT VULVAR LESION 10/05/2021 resolved 451477029 SNOME D-CT Allergies and Adverse Reactions Allergy Substance Reaction Severity Start Date Concern Status Co de Code System PCN (penicillin) Active 9112207 SNOMED- CT SULFA (sulfonamide) Active 06586862 SNO MED-CT Plan of Treatment CT CHEST W/O CONTRAST 09/18/2023 US ABDOMEN LIMITED 1 ORGAN 10/15/2022 CT CHEST W/O CONTRAST 08/26/2022 MM SCREEN BILAT 08/26/2022 CT CHEST W/O CONTRAST 04/29/2022 Encounters Encounter Diagnosis Start Date Code Code Sys tem Encounter for screening mamm ogram for malignant neoplasm of breast 08/26/2022 SNOMED-CT Personal Care Team Section Performer Name Performer Role Active Date Inactive Da te
--- OUTSIDE RECORDS SUMMARY | 2024-04-08 16:08 | XMS_ITS ---
Author Name Unknown Address [address] [place] [address] [phone] Phone Organization Unknown Address [address] [place] [address] [phone] Phone Care Team Providers Care Deicer Inspector Electric Name Role Phone IRINA MENDOZA Registered Nurse Unavailable BASHIR Rubi Attending Unavailable DARWIN Canchola Primary Unavailable Results COMPREHENSIVE METABOLIC PANE L (CMP) - Collect Date/Time: 10/06/2022 12:25 [facility] ID: [id number] [address] [place] [address], [address]47 LOINC: 16140-6 Test Value Unit Reference Range Code Code System Flag GLUCOSE 103 mg/dL L=70 H=116 2345-7 LOINC BUN 15 mg/dL L=6 H=25 3094-0 LOINC CREATININE 0.79 mg/dL L=0.51 H=0.95 2160-0 LOINC SODIUM SERUM 140 mmol/L L=136 H=145 2951-2 LOINC POTASSIUM SERUM 3.8 mmol/L L=3.4 H=5.2 2823-3 LOINC CHLORIDE SERUM 105 mmol/L L=96 H=110 2075-0 LOINC CARBON DIOXIDE (CO2) 29 mmol/L L=22 H=34 2028-9 LOINC ANION GAP 5.8 mmol/L 52975-4 LOINC CALCIUM SERUM 8.9 mg/dL L=8.2 H=10.2 79781-6 LOINC BILIRUBIN TOTAL 0.3 mg/dL L=0.0 H=1.3 1975-2 LOINC ALK. PHOS. 143 U/L L=46 H=116 6768-6 LOINC H SGOT (AST) 25 U/L L=15 H=37 1920-8 LOINC SGPT (ALT) 53 U/L L=12 H=78 1742-6 LOINC TOTAL PROTEIN 7.5 gm/dL L=6.0 H=8.0 2885-2 LOINC ALBUMIN 3.1 gm/dL L=3.4 H=5.0 1751-7 LOINC L AGE 57 years eGFR (non-Afr.Amer.) 75 mL/min 47088-4 LOINC eGFR (Afr-Namibian) 91 mL/min 30597-4 LOINC CBC W/ DIFFERENTIAL* - Colle ct Date/Time: 10/06/2022 12:25 [facility] ID: [id number] [address] [place] [address], 56 LOINC: 55429-9 Test Value Unit Reference Range Code Code System Flag WBC 10.96 th/cmm L=5.00 H=10.00 6690-2 LOINC H NEUT % 56.7 % L=40.0 H=80.0 LYMPH % 27.7 % L=10.0 H=50.0 MONO % 9.9 % L=2.0 H=12.0 27165-0 LOINC EOS % 4.5 % L=0.0 H=8.0 BASO % 0.4 % L=0.0 H=3.0 IG % 0.8 % L=0.0 H=1.1 2514-8 LOINC NRBC % 0.0 % L=0.0 H=0.0 80348-9 LOINC NEUT abs count 6.2 th/cmm L=1.6 H=8.4 751-8 LOINC LYMPH abs count 3.0 th/cmm L=1.5 H=4.0 731-0 LOINC MONO abs count 1.1 th/cmm L=0.2 H=1.0 742-7 LOINC H EOS abs count 0.5 th/cmm L=0.0 H=0.5 711-2 LOINC BASO abs count 0.0 th/cmm L=0.0 H=0.2 704-7 LOINC IG abs count 0.1 th/cmm L=0.0 H=0.1 08853-2 LOINC NRBC abs count 0.0 mil/cmm L=0.0 H=0.0 01319-5 LOINC RBC 4.34 mil/cmm L=3.90 H=5.40 789-8 LOINC HEMOGLOBIN 12.4 gm/dL L=12.0 H=16.0 718-7 LOINC HEMATOCRIT 38 % L=37 H=47 4544-3 LOINC MCV 88 fL L=82 H=92 787-2 LOINC MCH 28.6 pg L=27.0 H=31.0 785-6 LOINC MCHC 32.4 % L=32.0 H=36.0 786-4 LOINC RDW-SD 42.4 fL L=39.0 H=49.0 788-0 LOINC PLATELET COUNT 378 th/cmm L=150 H=450 777-3 LOINC XR FINGER(S) 2V OR MORE RT - Completed: 10/06/2022 13:26 LOINC: [place], [place] [address] PACS DIRECTOR CLIENT SERVICES REPORT Patient Name: TEREZA ALEJO MRN: Sex: : Age: [id number] F 1965 57 Account: Accession: Admit: StayType: [id number] 10/06/2022 E/R Ordered: Order ID: Submitted: Ordering Provider: 10/06/2022 11:51 [id number] SOBEIDA GONZALES Completed: Technologist: Resulted: 10/06/2022 13:26 ALS 10/06/2022 15:34 Study Description: XR FINGER(S) 2V OR MORE RT Study Reason: Trauma Comparison: FINDINGS: Bones: No evidence of fracture Joints: No dislocation. Severe degenerative changes assessment interphalangeal joint. Soft tissues: No foreign body. IMPRESSION: No acute bony abnormality. Report Digitally Signed by Dee Dee Trujillo on 10/06/2022 03:34 PM EST Social History Type Status Start Date End Date Code Code Syst em Smoking History Current every day smoker 853920138 SNOMED CT Smoking History Former smoker 3469776 SNOMED CT Sex Female Vital Signs Vital Sign Value Unit [place] Value [place] Unit Date/Time Recent/Initial? Code Code System Body Mass Index 34.63 kg/m2 10/06/2022 11:44 Initial 92908 -5 LOINC Systolic Blood Pressure 141 mm[Hg] 10/06/2022 13:32 Most Recent 8480- 6 LOINC Diastolic Blood Pressure 69 mm[Hg] 10/06/2022 13:32 Most Recent 8462- 4 LOINC Systolic Blood Pressure 132 mm[Hg] 10/06/2022 11:44 Initial 8480- 6 LOINC Diastolic Blood Pressure 67 mm[Hg] 10/06/2022 11:44 Initial 8462- 4 LOINC Body Surface Area 1.89 m2 10/06/2022 11:44 Initial 3140- 1 LOINC Height 154.940 0 cm 61.00 in 10/06/2022 11:44 Initial 8302- 2 LOINC O2 Saturation 97 % 2021 13:32 Most Recent 79632 -5 LOINC O2 Saturation 100 % 2021 11:44 Initial 77468 -5 LOINC Pulse 115.0 /min 10/06/2022 13:32 Most Recent 8867- 4 LOINC Pulse 117.0 /min 10/06/2022 11:44 Initial 8867- 4 LOINC Respiration 20 /min 10/06/20 13:32 Most Recent 9279- 1 LOINC Respiration 22 /min 10/06/20 11:44 Initial 9279- 1 LOINC Temperature 37.2 Mary 99.0 F 10/06/20 11:44 Initial 8310- 5 LOINC Weight 83.14 kg 183.30 lbs 10/06/2022 11:44 Initial 95244 -7 LOINC Medications Medication Start Date End Date Route Frequency Dose Code Code System Medication Instructions Home Meds Folic Acid 1MG Oral Tablet 12/06/2021 Unknown ORAL DAILY 1 MILLIGRAMS 253280 RxNorm TAKE 1 MILLIGRAMS ORAL DAILY Thiamine HCl 100MG Oral Tablet 12/06/2021 3 ORAL DAILY 100 MILLIGRAMS 038431 RxNorm TAKE 100 MILLIGRAMS ORAL DAILY Pantoprazole Sodium 40 MG Oral Tablet, Delayed Release 12/06/2021 Unknown ORAL DAILY 40 MG 984745 RxNorm TAKE 40 MG ORAL DAILY Multivitamin Oral Tablet 12/06/2021 Unknown ORAL DAILY 1 unit(s) RxNorm TAKE 1 EACH ORAL DAILY Keflex 500MG Oral Capsule 06/18/2023 Unknown ORAL TWICE A DAY 1 CAPSULE 004581 RxNorm TAKE 1 CAPSULE ORAL TWICE A [...] ENCEPHALOPATHY active 2100 7002 SNOMED-CT MALNUTRITION active 9847158 SNOMED- CT SICK-EUTHYROID SYNDROME active 073656 005 SNOMED-CT DIFFICULTY WITH LIFE MANAGEMENT active 027571312 SNOMED-CT GERD active 724108141 SNOMED-CT HISTORY OF ALCOHOL ABUSE 10/05/2021 resolved 3714 54375 SNOMED-CT ALCOHOL WITHDRAWAL-INDUCED SEIZURE 10/05/2021 resolved 198981444 SNOMED-CT PUD 10/05/2021 resolved 70090441 SNOMED-CT ELEVATED LIVER ENZYMES LEVEL 10/05/2021 resolved 030600573 SNOMED-CT VULVAR LESION 10/05/2021 resolved 746931539 SNOME D-CT Allergies and Adverse Reactions Allergy Substance Reaction Severity Start Date Concern Status Co de Code System PCN (penicillin) Active 4239804 SNOMED- CT SULFA (sulfonamide) Active 50385011 SNO MED-CT Plan of Treatment CT CHEST W/O CONTRAST 09/18/2023 US ABDOMEN LIMITED 1 ORGAN 10/15/2022 CT CHEST W/O CONTRAST 08/26/2022 MM SCREEN BILAT 08/26/2022 CT CHEST W/O CONTRAST 04/29/2022 Encounters Encounter Diagnosis Start Date Code Code Sys tem Dermatitis, unspecified 10/06/2022 SN ED-CT Personal Care Team Section Performer Name Performer Role Active Date Inactive Da te
--- OUTSIDE RECORDS SUMMARY | 2024-04-08 16:08 | XMS_ITS ---
Author Name Unknown Address [address] [place] [address] [phone] Phone Organization Unknown Address [address] [place] [address] [phone] Phone Care Team Providers Care Conference Services Manager Name Role Phone ASHER REHMAN Registered Nurse Unavailable APOLINAR Bradley Attending Unavailable ANGELITO Anand Primary Unavailable UNLISTED PROVIDER - REQUESTED Xhandoff Un available Results XR ANKLE LT 3V* - Completed: 08/29/2022 08:33 LOINC: [place], [place] [address] PACS SEWING TRIMMER REPORT Patient Name: TEREZA ALEJO MRN: Sex: : Age: [id number] F 1965 57 Account: Accession: Admit: StayType: [id number] 08/26/2022 E/R Ordered: Order ID: Submitted: Ordering Provider: 08/26/2022 08:32 [id number] CAROLA RAMIREZ Completed: Technologist: Resulted: 08/29/2022 08:32 08/26/2022 13:29 Study Description: N/A Study Reason: N/A Technique: 2D digital imaging was performed. 3 images were obtained. COMPARISON: None. FINDINGS: Bones: No acute fractures present. No bony destructive lesion is seen. Joints: No dislocation is present. No joint effusion is seen. Soft tissues: There is soft tissue swelling about the ankle particularly laterally. IMPRESSION: No acute fracture or dislocation. Report Digitally Signed by Broderick Zapata on 08/26/2022 01:29 PM EST Social History Type Status Start Date End Date Code Code Syst em Smoking History Current every day smoker 816881391 SNOMED CT Smoking History Former smoker 1420993 SNOMED CT Sex Female Vital Signs Vital Sign Value Unit [place] Value [place] Unit Date/Time Recent/Initial? Code Code System Body Mass Index 26.07 kg/m2 08/26/2022 12:41 Initial 71320 -5 LOINC Systolic Blood Pressure 136 mm[Hg] 08/26/2022 14:12 Initial 8480- 6 LOINC Diastolic Blood Pressure 73 mm[Hg] 08/26/2022 14:12 Initial 8462- 4 LOINC Body Surface Area 1.64 m2 08/26/2022 12:41 Initial 3140- 1 LOINC Height 154.940 0 cm 61.00 in 08/26/2022 12:41 Initial 8302- 2 LOINC O2 Saturation 100 % 2021 14:12 Most Recent 31497 -5 LOINC O2 Saturation 97 % 2021 12:41 Initial 12091 -5 LOINC Pulse 98.0 /min 08/26/2022 14:12 Most Recent 8867- 4 LOINC Pulse 115.0 /min 08/26/2022 12:41 Initial 8867- 4 LOINC Respiration 18 /min 08/26/20 14:12 Most Recent 9279- 1 LOINC Respiration 16 /min 08/26/20 12:41 Initial 9279- 1 LOINC Temperature 37.2 Mary 99.0 F 08/26/20 12:41 Initial 8310- 5 LOINC Weight 62.60 kg 138.00 lbs 08/26/2022 12:41 Initial 61948 -7 LOINC Medications Medication Start Date End Date Route Frequency Dose Code Code System Medication Instructions Home Meds Folic Acid 1MG Oral Tablet 12/06/2021 Unknown ORAL DAILY 1 MILLIGRAMS 930816 RxNorm TAKE 1 MILLIGRAMS ORAL DAILY Thiamine HCl 100MG Oral Tablet 12/06/2021 3 ORAL DAILY 100 MILLIGRAMS 150447 RxNorm TAKE 100 MILLIGRAMS ORAL DAILY Pantoprazole Sodium 40 MG Oral Tablet, Delayed Release 12/06/2021 Unknown ORAL DAILY 40 MG 686782 RxNorm TAKE 40 MG ORAL DAILY Multivitamin Oral Tablet 12/06/2021 Unknown ORAL DAILY 1 unit(s) RxNorm TAKE 1 EACH ORAL DAILY Keflex 500MG Oral Capsule 06/18/2023 Unknown ORAL TWICE A DAY 1 CAPSULE 668502 RxNorm TAKE 1 CAPSULE ORAL TWICE A [...] ENCEPHALOPATHY active 2100 7002 SNOMED-CT MALNUTRITION active 6404197 SNOMED- CT SICK-EUTHYROID SYNDROME active 115261 005 SNOMED-CT DIFFICULTY WITH LIFE MANAGEMENT active 187565959 SNOMED-CT GERD active 079373775 SNOMED-CT HISTORY OF ALCOHOL ABUSE 10/05/2021 resolved 3714 38217 SNOMED-CT ALCOHOL WITHDRAWAL-INDUCED SEIZURE 10/05/2021 resolved 649091508 SNOMED-CT PUD 10/05/2021 resolved 68216464 SNOMED-CT ELEVATED LIVER ENZYMES LEVEL 10/05/2021 resolved 000348454 SNOMED-CT VULVAR LESION 10/05/2021 resolved 706818001 SNOME D-CT Allergies and Adverse Reactions Allergy Substance Reaction Severity Start Date Concern Status Co de Code System PCN (penicillin) Active 2512829 SNOMED- CT SULFA (sulfonamide) Active 42601866 SNO MED-CT Plan of Treatment CT CHEST W/O CONTRAST 09/18/2023 US ABDOMEN LIMITED 1 ORGAN 10/15/2022 CT CHEST W/O CONTRAST 08/26/2022 MM SCREEN BILAT 08/26/2022 CT CHEST W/O CONTRAST 04/29/2022 Encounters Encounter Diagnosis Start Date Code Code Sys tem Contusion of left ankle 08/26/2022 [id number] SNOMED-CT Personal Care Team Section Performer Name Performer Role Active Date Inactive Da te
--- OUTSIDE RECORDS SUMMARY | 2024-04-08 16:09 | XMS_ITS ---
Author Name Unknown Address [address] [place] [address] [phone] Phone Organization Unknown Address [address] [place] [address] [phone] Phone Care Team Providers Care Drapery Hand Name Role Phone DARWIN Canchola Attending Unavailable ANGELITO Anand Primary Unavailable Results BASIC METABOLIC PANEL (BMP) - Collect Date/Time: 10/15/2022 07:37 [facility] ID: [id number] [address] [place] [address], [address] LOINC: 13679-2 Test Value Unit Reference Range Code Code System Flag GLUCOSE 100 mg/dL L=70 H=116 2345-7 LOINC BUN 15 mg/dL L=6 H=25 3094-0 LOINC CREATININE 0.69 mg/dL L=0.51 H=0.95 2160-0 LOINC SODIUM SERUM 140 mmol/L L=136 H=145 2951-2 LOINC POTASSIUM SERUM 4.1 mmol/L L=3.4 H=5.2 2823-3 LOINC CHLORIDE SERUM 103 mmol/L L=96 H=110 2075-0 LOINC CARBON DIOXIDE (CO2) 29 mmol/L L=22 H=34 2028-9 LOINC ANION GAP 8.4 mmol/L 81823-2 LOINC CALCIUM SERUM 8.9 mg/dL L=8.2 H=10.2 10176-7 LOINC AGE 57 years eGFR (non-Afr.Amer.) 88 mL/min 38200-5 LOINC eGFR (Afr-Tristanian) 106 mL/min 42193-8 LOINC US ABD LIMITED ONE ORGAN - C ompleted: 10/15/2022 08:00 LOINC: [facility] [place], [place] [address] PACS SET UP OPERATOR REPORT Patient Name: TEREZA ALEJO MRN: Sex: : Age: [id number] F 1965 57 Account: Accession: Admit: StayType: [id number] 10/15/2022 O/P Ordered: Order ID: Submitted: Ordering Provider: 10/15/2022 07:43 [id number] BE HINDS Completed: Technologist: Resulted: 10/15/2022 08:00 GVS 10/15/2022 09:33 Study Description: US ABD LIMITED ONE ORGAN Study Reason: MANDY Technique: Ultrasound of the abdomen was performed using protocol. Comparison: None. FINDINGS: ASCITES: None seen. IMPRESSION: No abdominal ascites is seen sonographically. Report Digitally Signed by Broderick Zapata on 10/15/2022 09:33 AM EST Social History Type Status Start Date End Date Code Code Syst em Smoking History Current every day smoker 738142036 SNOMED CT Smoking History [facility]145[facility] Sex Female Medications Medication Start Date End Date Route Frequency Dose Code Code System Medication Instructions Home Meds Folic Acid 1MG Oral Tablet 12/06/2021 Unknown ORAL DAILY 1 MILLIGRAMS 396683 RxNorm TAKE 1 MILLIGRAMS ORAL DAILY Thiamine HCl 100MG Oral Tablet 12/06/2021 3 ORAL DAILY 100 MILLIGRAMS 843468 RxNorm TAKE 100 MILLIGRAMS ORAL DAILY Pantoprazole Sodium 40 MG Oral Tablet, Delayed Release 12/06/2021 Unknown ORAL DAILY 40 MG 286799 RxNorm TAKE 40 MG ORAL DAILY Multivitamin Oral Tablet 12/06/2021 Unknown ORAL DAILY 1 unit(s) RxNorm TAKE 1 EACH ORAL DAILY Keflex 500MG Oral Capsule 06/18/2023 Unknown ORAL TWICE A DAY 1 CAPSULE 018069 RxNorm TAKE 1 CAPSULE ORAL TWICE A [...] ENCEPHALOPATHY active 2100 7002 SNOMED-CT MALNUTRITION active 1226639 SNOMED- CT SICK-EUTHYROID SYNDROME active 927574 005 SNOMED-CT DIFFICULTY WITH LIFE MANAGEMENT active 354920448 SNOMED-CT GERD active 009494971 SNOMED-CT HISTORY OF ALCOHOL ABUSE 10/05/2021 resolved 3714 41067 SNOMED-CT ALCOHOL WITHDRAWAL-INDUCED SEIZURE 10/05/2021 resolved 828253204 SNOMED-CT PUD 10/05/2021 resolved 64097885 SNOMED-CT ELEVATED LIVER ENZYMES LEVEL 10/05/2021 resolved 722662234 SNOMED-CT VULVAR LESION 10/05/2021 resolved 251410421 SNOME D-CT Allergies and Adverse Reactions Allergy Substance Reaction Severity Start Date Concern Status Co de Code System PCN (penicillin) Active 5351795 SNOMED- CT SULFA (sulfonamide) Active 69185382 SNO MED-CT Plan of Treatment CT CHEST W/O CONTRAST 09/18/2023 US ABDOMEN LIMITED 1 ORGAN 10/15/2022 CT CHEST W/O CONTRAST 08/26/2022 MM SCREEN BILAT 08/26/2022 CT CHEST W/O CONTRAST 04/29/2022 Encounters Encounter Diagnosis Start Date Code Code Sys tem Wernicke's encephalopathy 10/15/2022 SN OMED-CT Personal Care Team Section Performer Name Performer Role Active Date Inactive Da te
--- OUTSIDE RECORDS SUMMARY | 2024-04-08 16:09 | XMS_ITS ---
Author Name Unknown Address [address] [place] [address] [phone] Phone Organization Unknown Address [address] [place] [address] [phone] Phone Care Team Providers Care Dietitian Therapeutic Name Role Phone WANDY BLAKE Registered Nurse Unavailable BISHOP Canchola Attending Unavailable TREVOR Canchola [facility] Unavailable ANGELITO Anand Primary Unavailable APOLINAR Bradley Xhandoff Unavailable UNLISTED PROVIDER - REQUESTED Xhandoff Un available Social History Type Status Start Date End Date Code Code Syst em Smoking History Current every day smoker 750811793 SNOMED CT Smoking History Former smoker 6332717 SNOMED CT Sex Female Vital Signs Vital Sign Value Unit [place] Value [place] Unit Date/Time Recent/Initial? Code Code System Body Mass Index 32.88 kg/m2 10/15/2022 19:44 Initial 41398 -5 LOINC Systolic Blood Pressure 135 mm[Hg] 10/15/2022 19:44 Initial 8480- 6 LOINC Diastolic Blood Pressure 93 mm[Hg] 10/15/2022 19:44 Initial 8462- 4 LOINC Body Surface Area 1.84 m2 10/15/2022 19:44 Initial 3140- 1 LOINC Height 154.940 0 cm 61.00 in 10/15/2022 19:44 Initial 8302- 2 LOINC O2 Saturation 93 % 2021 19:44 Initial 14360 -5 LOINC Pulse 109.0 /min 10/15/2022 19:44 Initial 8867- 4 LOINC Respiration 18 /min 10/15/20 19:44 Initial 9279- 1 LOINC Temperature 37.2 Mary 99.0 F 10/15/20 19:44 Initial 8310- 5 LOINC Weight 78.93 kg 174.00 lbs 10/15/2022 19:44 Initial 60348 -7 [facility] Medications Medication Start Date End Date Route Frequency Dose Code Code System Medication Instructions Home Meds Folic Acid 1MG Oral Tablet 12/06/2021 Unknown ORAL DAILY 1 MILLIGRAMS 308278 RxNorm TAKE 1 MILLIGRAMS ORAL DAILY Thiamine HCl 100MG Oral Tablet 12/06/2021 3 ORAL DAILY 100 MILLIGRAMS 359369 RxNorm TAKE 100 MILLIGRAMS ORAL DAILY Pantoprazole Sodium 40 MG Oral Tablet, Delayed Release 12/06/2021 Unknown ORAL DAILY 40 MG 011954 RxNorm TAKE 40 MG ORAL DAILY Multivitamin Oral Tablet 12/06/2021 Unknown ORAL DAILY 1 unit(s) RxNorm TAKE 1 EACH ORAL DAILY Keflex 500MG Oral Capsule 06/18/2023 Unknown ORAL TWICE A DAY 1 CAPSULE 410587 RxNorm TAKE 1 CAPSULE ORAL TWICE A [...] ENCEPHALOPATHY active 2100 7002 SNOMED-CT MALNUTRITION active 8275386 SNOMED- CT SICK-EUTHYROID SYNDROME active 179595 005 SNOMED-CT DIFFICULTY WITH LIFE MANAGEMENT active 265273916 SNOMED-CT GERD active 331632277 SNOMED-CT HISTORY OF ALCOHOL ABUSE 10/05/2021 resolved 3714 26161 SNOMED-CT ALCOHOL WITHDRAWAL-INDUCED SEIZURE 10/05/2021 resolved 134836140 SNOMED-CT PUD 10/05/2021 resolved 93083262 SNOMED-CT ELEVATED LIVER ENZYMES LEVEL 10/05/2021 resolved 453500924 SNOMED-CT VULVAR LESION 10/05/2021 resolved 461013871 SNOME D-CT Allergies and Adverse Reactions Allergy Substance Reaction Severity Start Date Concern Status Co de Code System PCN (penicillin) Active 9648164 SNOMED- CT SULFA (sulfonamide) Active 94858881 SNO MED-CT Plan of Treatment CT CHEST W/O CONTRAST 09/18/2023 US ABDOMEN LIMITED 1 ORGAN 10/15/2022 CT CHEST W/O CONTRAST 08/26/2022 MM SCREEN BILAT 08/26/2022 CT CHEST W/O CONTRAST 04/29/2022 Encounters Encounter Diagnosis Start Date Code Code Sys tem Dermatitis, unspecified 10/15/2022 SN ED-CT Personal Care Team Section Performer Name Performer Role Active Date Inactive Da te
--- OUTSIDE RECORDS SUMMARY | 2024-04-08 16:10 | XMS_ITS ---
Author Name Unknown Address [address] [place] [address] [phone] Phone Organization Unknown Address [address] [place] [address] [phone] Phone Care Team Providers Care Pit Supervisor Name Role Phone DARWIN Canchola Attending Unavailable ANGELITO Anand Primary Unavailable Social History Type Status Start Date End Date Code Code Syst em Smoking History Current every day smoker 709979995 SNOMED CT Smoking History Former smoker 5841660 SNOMED CT Sex Female Medications Medication Start Date End Date Route Frequency Dose Code Code System Medication Instructions Home Meds Folic Acid 1MG Oral Tablet 12/06/2021 Unknown ORAL DAILY 1 MILLIGRAMS 847426 RxNorm TAKE 1 MILLIGRAMS ORAL DAILY Thiamine HCl 100MG Oral Tablet 12/06/2021 3 ORAL DAILY 100 MILLIGRAMS 751229 RxNorm TAKE 100 MILLIGRAMS ORAL DAILY Pantoprazole Sodium 40 MG Oral Tablet, Delayed Release 12/06/2021 Unknown ORAL DAILY 40 MG 191689 RxNorm TAKE 40 MG ORAL DAILY Multivitamin Oral Tablet 12/06/2021 Unknown ORAL DAILY 1 unit(s) RxNorm TAKE 1 EACH ORAL DAILY Keflex 500MG Oral Capsule 06/18/2023 Unknown ORAL TWICE A DAY 1 CAPSULE 661110 RxNorm TAKE 1 CAPSULE ORAL TWICE A [...] Status Code Code System WERNICKE'S ENCEPHALOPATHY active 2099 7002 SNOMED-CT MALNUTRITION active 7696261 SNOMED- CT SICK-EUTHYROID SYNDROME active 109374 005 SNOMED-CT DIFFICULTY WITH LIFE MANAGEMENT active 109223080 SNOMED-CT GERD active 336993365 SNOMED-CT HISTORY OF ALCOHOL ABUSE 10/05/2021 resolved 5983 94712 SNOMED-CT ALCOHOL WITHDRAWAL-INDUCED SEIZURE 10/05/2021 resolved 213702129 SNOMED-CT PUD 10/05/2021 resolved 43203447 SNOMED-CT ELEVATED LIVER ENZYMES LEVEL 10/05/2021 resolved 154784917 SNOMED-CT VULVAR LESION 10/05/2021 resolved 423580691 SNOME D-CT Allergies and Adverse Reactions Allergy Substance Reaction Severity Start Date Concern Status Co de Code System PCN (penicillin) Active 5359121 SNOMED- CT SULFA (sulfonamide) Active 38340416 SNO MED-CT Plan of Treatment CT CHEST W/O CONTRAST 09/18/2023 US ABDOMEN LIMITED 1 ORGAN 10/15/2022 CT CHEST W/O CONTRAST 08/26/2022 MM SCREEN BILAT 08/26/2022 CT CHEST W/O CONTRAST 04/29/2022 Encounters Encounter Diagnosis Start Date Code Code Sys tem Other abnormalities of gait and mobility 03/14/2023 SNOMED-CT Personal Care Team Section Performer Name Performer Role Active Date Inactive Da te
--- OUTSIDE RECORDS SUMMARY | 2024-04-08 16:10 | XMS_ITS ---
Author Name Unknown Address [address] [place] [address] [phone] Phone Organization Unknown Address [address] [place] [address] [phone] Phone Care Team Providers Care Information Systems Specialist Name Role Phone KITTY GIBBONS Registered Nurse Unavailable CORNELIA HARRISON Attending Unavailable FLORENCIO [facility] Unavailable ANGELITO Anand Primary Unavailable UNLISTED PROVIDER - REQUESTED Xhandoff Un available Results ALCOHOL (ETHANOL)* - Collect Date/Time: 06/18/2023 19:51 [facility] ID: [id number] [address] [place] [address], [address] LOINC: 14484-5 Test Value Unit Reference Range Code Code System Flag ALCOHOL (ETHANOL) < 3 mg/dL 47593-0 LOINC AMMONIA - Collect Date/Time: 06/18/2023 19:51 [facility] ID: [id number] [address] [place] [address], 5[address] LOINC: 93406-7 Test Value Unit Reference Range Code Code System Flag AMMONIA 12 umol/L L=19 H=54 95331-2 LOINC L URINALYSIS WITH REFLEX CULT IF POSITIVE* - Collect Date/Time: 06/18/2023 19:36 [facility] ID: [id number] [address] [place] [address], [address] LOINC: 40240-8 Test Value Unit Reference Range Code Code System Flag COLLECTION MODE: CLEAN CATCH 90883-8 LOINC Color YELLOW yellow 5778-6 LOINC Appearance HAZY clear 5767-9 LOINC Glucose urine NEGATIVE negative mg/dl 92810-7 LOINC Bilirubin NEGATIVE negative 5770-3 LOINC Ketones NEGATIVE negative mg/dl 2514-8 LOINC Spec gravity 1.020 1.003 - 1.030 5811-5 LOINC pH urine 7.0 5.0 - 7.0 2756-5 LOINC Protein 30 negative mg/dl 60570-7 LOINC A Urobilinogen 1.0 <or= 1 EU/dl 67185-0 LOINC A Nitrite. POSITIVE negative 5802-4 LOINC A Blood LARGE negative 5794-3 LOINC A Leukocytes. SMALL negative A MICROSCOPIC INDICATED WBCs. 25-100 0-5 / hpf 46508-8 LOINC RBCs 10-25 0-5 / hpf 57674-3 LOINC Epith cells none 0-5 / hpf 85787-0 LOINC Crystals none none Bacteria large none Mucus none none 8247-9 LOINC Casts none none /lpf 01076-8 LOINC Other 02477-6 LOINC CULT URINE CULTURE* - Colle t Date/Time: 06/18/2023 19:36 [facility] ID: [id number] [address] [place] [address], [id number] LOINC: 630-4 Test Value Unit Reference Range Code Code System Flag COLLECTION MODE: CLEAN CATCH 29314-8 LOINC TROPONIN HIGH SENSITIVITY* - Collect Date/Time: 06/18/2023 18:00 [facility] ID: [id number] [address] [place] [address], 5[address] LOINC: 89001-3 Test Value Unit Reference Range Code Code System Flag TROPONIN HS 8.7 pg/mL L=0.0 H=60.4 Specimen seq. ADM. COMPREHENSIVE METABOLIC PANE L (CMP) - Collect Date/Time: 06/18/2023 18:00 [facility] ID: [id number] [address] [place] [address], 5[address] LOINC: 68288-5 Test Value Unit Reference Range Code Code System Flag GLUCOSE 102 mg/dL L=70 H=116 2345-7 LOINC BUN 18 mg/dL L=6 H=25 3094-0 LOINC CREATININE 0.92 mg/dL L=0.51 H=0.95 2160-0 LOINC SODIUM SERUM 138 mmol/L L=136 H=145 2951-2 LOINC POTASSIUM SERUM 3.8 mmol/L L=3.4 H=5.2 2823-3 LOINC CHLORIDE SERUM 102 mmol/L L=96 H=110 2075-0 LOINC CARBON DIOXIDE (CO2) 25 mmol/L L=22 H=34 2028-9 LOINC ANION GAP 11.5 mmol/L 48940-5 LOINC CALCIUM SERUM 9.2 mg/dL L=8.2 H=10.2 52498-1 LOINC BILIRUBIN TOTAL 0.4 mg/dL L=0.0 H=1.3 1975-2 LOINC ALK. PHOS. 127 U/L L=46 H=116 6768-6 LOINC H SGOT (AST) 39 U/L L=15 H=37 1920-8 LOINC H SGPT (ALT) 78 U/L L=12 H=78 1742-6 LOINC TOTAL PROTEIN 8.1 gm/dL L=6.0 H=8.0 2885-2 LOINC H ALBUMIN 3.7 gm/dL L=3.4 H=5.0 1751-7 LOINC AGE 58 years eGFR (non-Afr.Amer.) 63 mL/min 18346-2 LOINC eGFR (Afr-Surinamese) 76 mL/min 07885-9 LOINC CBC W/ DIFFERENTIAL* - Colle ct Date/Time: 06/18/2023 18:00 [facility] ID: [id number] [address] [place], [place], [address] LOINC: 40146-0 Test Value Unit Reference Range Code Code System Flag WBC 10.49 th/cmm L=5.00 H=10.00 6690-2 LOINC H NEUT % 75.7 % L=40.0 H=80.0 LYMPH % 15.8 % L=10.0 H=50.0 MONO % 7.8 % L=2.0 H=12.0 78593-1 LOINC EOS % 0.0 % L=0.0 H=8.0 BASO % 0.3 % L=0.0 H=3.0 IG % 0.4 % L=0.0 H=1.1 2514-8 LOINC NRBC % 0.0 % L=0.0 H=0.0 05611-5 LOINC NEUT abs count 7.9 th/cmm L=1.6 H=8.4 751-8 LOINC LYMPH abs count 1.7 th/cmm L=1.5 H=4.0 731-0 LOINC MONO abs count 0.8 th/cmm L=0.2 H=1.0 742-7 LOINC EOS abs count 0.0 th/cmm L=0.0 H=0.5 711-2 LOINC BASO abs count 0.0 th/cmm L=0.0 H=0.2 704-7 LOINC IG abs count 0.0 th/cmm L=0.0 H=0.1 70378-8 LOINC NRBC abs count 0.0 mil/cmm L=0.0 H=0.0 87759-1 LOINC RBC 5.39 mil/cmm L=3.90 H=5.40 789-8 LOINC HEMOGLOBIN 14.6 gm/dL L=12.0 H=16.0 718-7 LOINC HEMATOCRIT 45 % L=37 H=47 4544-3 LOINC MCV 83 fL L=82 H=92 787-2 LOINC MCH 27.1 pg L=27.0 H=31.0 785-6 LOINC MCHC 32.6 % L=32.0 H=36.0 786-4 LOINC RDW-SD 43.6 fL L=39.0 H=49.0 788-0 LOINC PLATELET COUNT 318 th/cmm L=150 H=450 777-3 LOINC Social History Type Status Start Date End Date Code Code Syst em Smoking History Current every day smoker 517465004 SNOMED CT Smoking History Former smoker 5444578 SNOMED CT Sex Female Vital Signs Vital Sign Value Unit [place] Value [place] Unit Date/Time Recent/Initial? Code Code System Body Mass Index 34.96 kg/m2 06/18/2023 18:39 Initial 96762 -5 LOINC Systolic Blood Pressure 160 mm[Hg] 06/18/2023 21:50 Most Recent 8480- 6 [facility] Diastolic Blood Pressure 100 mm[Hg] 06/18/2023 21:50 Most Recent 8462- 4 [facility] Systolic Blood Pressure 132 mm[Hg] 06/18/2023 18:39 Initial 8480- 6 [facility] Diastolic Blood Pressure 62 mm[Hg] 06/18/2023 18:39 Initial 8462- 4 [facility] Body Surface Area 1.90 m2 06/18/2023 18:39 Initial 3140- 1 [facility] Height 154.940 0 cm 61.00 in 06/18/2023 18:39 Initial 8302- 2 [facility] O2 Saturation 96 % 2022 21:50 Most Recent 93892 -5 [facility] O2 Saturation 92 % 2022 18:39 Initial 63316 -5 [facility] Pulse 118.0 /min 06/18/2023 21:50 Most Recent 8867- 4 [facility] Pulse 133.0 /min 06/18/2023 18:39 Initial 8867- 4 INC Respiration 16 /min 06/18/20 23 21:50 Most Recent 9279- 1 [facility] Respiration 18 /min 06/18/20 18:39 Initial 9279- 1 INC Temperature 37.0 Mary 98.6 F 06/18/20 21:50 Most Recent 8310- 5 INC Temperature 37.6 Mary 99.7 F 06/18/20 18:39 Initial 8310- 5 [facility] Weight 83.91 kg 185.00 lbs 06/18/2023 18:39 Initial 90302 -7 [facility] Medications Medication Start Date End Date Route Frequency Dose Code Code System Medication Instructions Home Meds Folic Acid 1MG Oral Tablet 12/06/2021 Unknown ORAL DAILY 1 MILLIGRAMS 276107 RxNorm TAKE 1 MILLIGRAMS ORAL DAILY Thiamine HCl 100MG Oral Tablet 12/06/2021 3 ORAL DAILY 100 MILLIGRAMS 245324 RxNorm TAKE 100 MILLIGRAMS ORAL DAILY Pantoprazole Sodium 40 MG Oral Tablet, Delayed Release 12/06/2021 Unknown ORAL DAILY 40 MG 188302 RxNorm TAKE 40 MG ORAL DAILY Multivitamin Oral Tablet 12/06/2021 Unknown ORAL DAILY 1 unit(s) RxNorm TAKE 1 EACH ORAL DAILY Keflex 500MG Oral Capsule 06/18/2023 Unknown ORAL TWICE A DAY 1 CAPSULE 526806 RxNorm TAKE 1 CAPSULE ORAL TWICE A [...] ENCEPHALOPATHY active 2100 7002 SNOMED-CT MALNUTRITION active 8412215 SNOMED- CT SICK-EUTHYROID SYNDROME active 954460 005 SNOMED-CT DIFFICULTY WITH LIFE MANAGEMENT active 154574722 SNOMED-CT GERD active 593014793 SNOMED-CT HISTORY OF ALCOHOL ABUSE 10/05/2021 resolved 3714 62204 SNOMED-CT ALCOHOL WITHDRAWAL-INDUCED SEIZURE 10/05/2021 resolved 507146354 SNOMED-CT PUD 10/05/2021 resolved 52823808 SNOMED-CT ELEVATED LIVER ENZYMES LEVEL 10/05/2021 resolved 212951192 SNOMED-CT VULVAR LESION 10/05/2021 resolved 037538610 SNOME D-CT Allergies and Adverse Reactions Allergy Substance Reaction Severity Start Date Concern Status Co de Code System PCN (penicillin) Active 5021822 SNOMED- CT SULFA (sulfonamide) Active 16006346 SNO MED-CT Plan of Treatment CT CHEST W/O CONTRAST 09/18/2023 US ABDOMEN LIMITED 1 ORGAN 10/15/2022 CT CHEST W/O CONTRAST 08/26/2022 MM SCREEN BILAT 08/26/2022 CT CHEST W/O CONTRAST 04/29/2022 Encounters Encounter Diagnosis Start Date Code Code Sys tem Urinary tract infection, site not specified 06/18/2023 SNOMED-CT Personal Care Team Section Performer Name Performer Role Active Date Inactive Da jazzy
--- OUTSIDE RECORDS SUMMARY | 2024-04-08 16:10 | XMS_ITS ---
Author Name Unknown Address [address] [place] [address] [phone] Phone Organization Unknown Address [address] [place] [address] [phone] Phone Care Team Providers Care Gasket Winder Name Role Phone DARWIN Canchola Attending Unavailable ANGELITO Anand Primary Unavailable Results CT LDCT FOR LUNG CA SCREEN - Completed: 09/18/2023 13:18 LOINC: [No content] Social History Type Status Start Date End Date Code Code Syst em Smoking History Current every day smoker 402468936 SNOMED CT Smoking History Former smoker 9619344 SNOMED CT Sex Female Medications Medication Start Date End Date Route Frequency Dose Code Code System Medication Instructions Home Meds Folic Acid 1MG Oral Tablet 12/06/2021 Unknown ORAL DAILY 1 MILLIGRAMS 386728 RxNorm TAKE 1 MILLIGRAMS ORAL DAILY Pantoprazole Sodium 40 MG Oral Tablet, Delayed Release 12/06/2021 Unknown ORAL DAILY 40 MG 291746 RxNorm TAKE 40 MG ORAL DAILY Multivitamin Oral Tablet 12/06/2021 Unknown ORAL DAILY 1 unit(s) RxNorm TAKE 1 EACH ORAL DAILY Keflex 500MG Oral Capsule 06/18/2023 Unknown ORAL TWICE A DAY 1 CAPSULE 874545 RxNorm TAKE 1 CAPSULE ORAL TWICE A [...] ENCEPHALOPATHY active 2100 7002 SNOMED-CT MALNUTRITION active 9373481 SNOMED- CT SICK-EUTHYROID SYNDROME active 529458 005 SNOMED-CT DIFFICULTY WITH LIFE MANAGEMENT active 433902294 SNOMED-CT GERD active 125189706 SNOMED-CT HISTORY OF ALCOHOL ABUSE 10/05/2021 resolved 5124 82822 SNOMED-CT ALCOHOL WITHDRAWAL-INDUCED SEIZURE 10/05/2021 resolved 894547491 SNOMED-CT PUD 10/05/2021 resolved 46036212 SNOMED-CT ELEVATED LIVER ENZYMES LEVEL 10/05/2021 resolved 175868638 SNOMED-CT VULVAR LESION 10/05/2021 resolved 096453514 SNOME D-CT Allergies and Adverse Reactions Allergy Substance Reaction Severity Start Date Concern Status Co de Code System PCN (penicillin) Active 5162671 SNOMED- CT SULFA (sulfonamide) Active 31302197 SNO MED-CT Plan of Treatment CT CHEST W/O CONTRAST 09/18/2023 US ABDOMEN LIMITED 1 ORGAN 10/15/2022 CT CHEST W/O CONTRAST 08/26/2022 MM SCREEN BILAT 08/26/2022 CT CHEST W/O CONTRAST 04/29/2022 Encounters Encounter Diagnosis Start Date Code Code Sys tem Encounter for screening for malignant neoplasm of respiratory organs 09/18/2023 SNOMED-CT Personal Care Team Section Performer Name Performer Role Active Date Inactive Da te
== END 2024-04-08 16:04 | disposition home or self-care (01) ==
LOC: NCHCN 16:03
PROVIDERS: PCP Registered Nurse; Visit Provider Family Medicine
DX: R30.0 Dysuria (principal); N39.0 Urinary tract infection, site not specified; B96.5 Pseudomonas (aeruginosa) (mallei) (pseudomallei) as the cause of diseases classified elsewhere; N89.8 Other specified noninflammatory disorders of vagina
CPT/HCPCS: 87077; 87086; 87186; 87480; 87510; 87660

== ENCOUNTER 2024-05-28 12:40 | Outpatient (REF) | payer MEDICAID, SELFPAY | END 2024-05-28 12:41 | disposition home or self-care (01) | LOC: NCHCN 12:40 | PROVIDERS: PCP Family Medicine; Visit Provider Family Medicine | DX: N39.0 Urinary tract infection, site not specified (principal) | CPT/HCPCS: 87077; 87086; 87186 ==

== ENCOUNTER 2024-09-01 21:45 | Outpatient (REF) | payer MEDICAID, SELFPAY | END 2024-09-01 21:46 | disposition home or self-care (01) | LOC: NCHCN 21:45 | PROVIDERS: PCP Family Medicine; Visit Provider Family Medicine | DX: N39.0 Urinary tract infection, site not specified (principal) | CPT/HCPCS: 87086 ==

== ENCOUNTER 2024-10-27 10:29 | Emergency (ER) | payer MEDICAID, SELFPAY ==
[2024-10-27 10:31] VITALS: BP 190/58; PULSE 119; RESP 16; O2SAT 94
--- NOTE | 2024-10-27 10:44 | ED.GENADUL_ITS ---
Discharge Plan Disposition Patient Disposition: Home Condition: Stable Discharge Details Clinical Impression: Urinary tract infection Primary Care Provider: Hilton Ojeda ED Provider: Rafael Rivers Home Meds and New Rx's Prescriptions: New ciprofloxacin HCl 500 mg tablet 500 mg PO BID Qty: 14 0RF Continued multivitamin Tablet 1 tab PO DAILY menthol-zinc oxide [Calmoseptine] 0.44-20.6 % ointment 1 applic topical QID PRN folic acid 1 mg tablet 1 mg PO DAILY furosemide 20 mg tablet 20 mg PO DAILY pantoprazole 40 mg tablet,delayed release (DR/EC) 40 mg PO DAILY spironolactone 25 mg tablet 25 mg PO DAILY Discharge Instructions Additional Instructions: You do have evidence of a urinary tract infection Take the antibiotic as prescribed Follow-up with your primary care provider especially if not improving within a week If you feel more ill or have new symptoms such as high fevers return to the em ergency department for reevaluation HPI General Mode of arrival: EMS . Date/Time Provider Initiated Documentation: 10/27/24 10:35 . Limitations to Documentation: no limitations . Information obtained by: patient . History of Present Illness 59 year old F presents to the emergency department with the chief complaint of painful urinationg, described as moderate, Patient started experiencing this year(s) (1) and it has been intermittent. No relieving factors improve symptom(s), No exacerbating factors reported . Patient notes denies fever/chills. Patient did receive the following treatments prior to arrival, none Related Data Home Medications ?Medication ?Instructions ?Recorded ?Confirmed folic acid 1 mg tablet 1 mg PO DAILY 09/09/24 10/27/24 furosemide 20 mg tablet 20 mg PO DAILY 09/09/24 10/27/24 menthol 0.44 %-zinc oxide 20.6 % 1 applic topical QID PRN 09/09/24 10/27/24 topical ointment (Calmoseptine) multivitamin 1 tab PO DAILY 09/09/24 10/27/24 pantoprazole 40 mg tablet,delayed 40 mg PO DAILY 09/09/24 10/27/24 release spironolactone 25 mg tablet 25 mg PO DAILY 09/09/24 10/27/24 ciprofloxacin HCl 500 mg tablet 500 mg PO BID #14 tabs 10/27/24 Previous Rx's ?Medication ?Instructions ?Recorded ciprofloxacin HCl 500 mg tablet 500 mg PO BID #14 tabs 10/27/24 Allergies Allergy/AdvReac Type Severity Reaction Status Date / Time NSAIDS (Non-Steroidal Allergy Other (See Verified 10/27/24 10:35 Anti-Inflamma Comment) Sulfa (Sulfonamide Allergy Other (See Verified 10/27/24 10:35 Antibiotics) Comment) General Stated Complaint: Urinary AMBROSE: 4 Review of Systems All systems reviewed & are unremarkable except as noted in HPI and below Constitutional Constitutional: Denies chills, Denies fever(s) and Denies weakness Cardiovascular Cardiovascular: Denies chest pain and Denies dyspnea Respiratory Respiratory: Denies cough and Denies dyspnea Gastrointestinal Gastrointestinal: Denies abdominal pain, Denies nausea and Denies vomiting Genitourinary Genitourinary: Reports dysuria Neurologic Neurologic: Denies weakness Exam Const Orientation: alert HENMT Head: normal to inspection Ears: external ears normal General nose exam: external nose normal Mouth: moist mucous membranes Eyes General: appearance normal, both eyes and all related structures Neck Neck: normal visual inspection Resp Effort & Inspection: normal respiratory effort and able to speak in complete sentences Cardio Rate: regular rate GI Palpation: soft and nontender Skin General skin exam: no rashes or lesions noted Neuro General: patient alert and patient oriented x3 Extrem General: normal to inspection Psych Mental Status: mental status grossly normal Course Vital Signs Vital signs: Vital Signs Pulse 119 H 10/27/24 10:31 Respiratory Rate 16 10/27/24 10:31 Blood Pressure 190/58 H 10/27/24 10:31 Pulse Oximetry 94 10/27/24 10:31 Pulse 119 H 10/27/24 10:31 Respiratory Rate 16 10/27/24 10:31 Blood Pressure 190/58 H 10/27/24 10:31 Pulse Oximetry 94 10/27/24 10:31 Oxygen Delivery Method Room Air 10/27/24 10:31 Oxygen Flow Rate 0 10/27/24 10:31 Medical Decision Making 59-year-old female with a history of Warnicke's disease and was a former drinker but no longer drinks alcohol, immobile chronically, who comes in with complaints of 1 year of intermittent painful urination. Denies any fevers or chills. Patient is alert and oriented x 4 answering questions appropriately though does seem annoyed with a lot of questions that are asked. She called her doctors and nurses that she is interacted with in the past idiots. She has a soft nontender abdomen. She denies any fevers. Given her complaints of painful urination will check a UA and also check basic screening labs and reassess. patient's blood work unremarkable, ua consistent with uti, has had prior cultures showing multiple different bacteria but is susceptible to cipro. No fevers or evidence of sepsis. 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
[2024-10-27 11:32] VITALS: PULSE 112; RESP 23; O2SAT 91
--- NOTE | 2024-10-27 11:34 | NUR.NOTE ---
Addendum entered by Neisha Traylor 10/27/24 12:34: Discharge instructions and prescription faxed to [facility] at their request. Original Note: Care provider Bruce Kirkland [phone] for ride on discharge. Fax discharge papers to [facility] on discharge [phone]. Nursing Note:
[2024-10-27 11:42] LABS: Bilirubin Negative (Negative); Blood Moderate (Negative); Clarity Turbid (Clear); Glucose Negative (Negative); Ketones Negative (Negative); Leukocyte Esterase Moderate (Negative); Nitrite Positive (Negative); Specific Gravity 1.025 (1.005-1.025); Urobilinogen 0.2 mg/dL (Up to 0.2)
[2024-10-27 11:47] LABS: Abs Immature Grans 0.05 10^3/uL (0.0-0.06); Absolute Basophil Count 0.05 10^3/uL (0.0-0.2); Absolute Eosinophil Count 0.25 10^3/uL (0.0-0.7); Absolute Lymphocyte Count 4.15 10^3/uL (1.2-3.4); Absolute Monocyte Count 0.96 10^3/uL (0.1-0.8); Basophils % 0.4 %; Eosinophils % 2.2 %; HCT 43.4 % (36.0-46.0); HGB 14.5 g/dL (11.2-15.7); Immature Grans % 0.4 %; MCH 28.4 pg (27.0-33.0); MCHC 33.4 % (32.0-36.0); MCV 85 fL (80-95); MPV 8.6 fL (8.0-11.0); Monocytes % 8.3 %; Neutrophils % 52.7 %; Platelet Count 361 10^3/uL (130-400); RDW 12.7 % (11.7-14.6); RDW-SD 39.3 fL; WBC 11.52 10^3/uL (4.4-10.8)
[2024-10-27 11:48] LABS: Absolute Neutrophil Count 6.07 10^3/uL (1.2-6.7)
[2024-10-27 11:50] LABS: Bacteria Packed HPF (Negative); WBC >50 HPF (0-5)
[2024-10-27 11:51] LABS: C & S Indicated? Yes
[2024-10-27 11:55] LABS: ALT 43 U/L (14-59); AST 20 U/L (15-37); Albumin 3.6 g/dL (3.4-5.0); Alkaline Phosphatase 128 U/L (46-116); Anion Gap 11.3 mmol/L (3-11); BUN 16 mg/dL (7-18); CO2 26.7 mmol/L (21.0-32.0); Chloride 105 mmol/L (98-107); Glucose 77 mg/dL (74-106); Magnesium 1.9 mg/dL (1.8-2.4); Potassium 3.4 mmol/L (3.5-5.1); Sodium 143 mmol/L (136-145); Total Protein 7.9 g/dL (6.4-8.2)
[2024-10-27] MEDS: Ciprofloxacin 500 MG TAB PO (12:01)
[2024-10-27 12:48] VITALS: BP 157/76; PULSE 101; RESP 16; TEMP 37; O2SAT 94
--- NOTE | 2024-10-30 10:10 | NUR.NOTE ---
Accessed Pt chart to document the antibiotic prescribed to Pt. This was documents on the Specimen sheet.
== END 2024-10-27 13:12 | disposition home or self-care (01) ==
LOC: ER 12:38
PROVIDERS: Emergency Provider Emergency Medicine; PCP Family Medicine
DX: N39.0 Urinary tract infection, site not specified (principal); E51.2 Wernicke's encephalopathy; Z87.891 Personal history of nicotine dependence
CPT/HCPCS: 36415; 80053; 87077; 99283; 81003; 81015; 83735; 85025; 87086; 87186

== ENCOUNTER 2025-04-12 16:27 | Outpatient (REF) | payer MEDICAID, SELFPAY | END 2025-04-12 16:28 | disposition home or self-care (01) | LOC: NCHCN 16:27 | PROVIDERS: PCP Family Medicine; Visit Provider Family Medicine | DX: N39.0 Urinary tract infection, site not specified (principal) | CPT/HCPCS: 87077; 87086; 87186 ==

== ENCOUNTER 2025-06-28 18:09 | Outpatient (REF) | payer MEDICAID, SELFPAY | END 2025-06-28 18:10 | disposition home or self-care (01) | LOC: NCHCN 18:09 | PROVIDERS: PCP Family Medicine; Visit Provider Nurse Practitioner Family | DX: R39.9 Unspecified symptoms and signs involving the genitourinary system (principal) | CPT/HCPCS: 87086; 87186 ==